=== PATIENT | male | born 1940 | race Caucasian/White ===

== ENCOUNTER 2021-03-23 08:37 | Outpatient (RCR) | payer MEDICARE, SELFPAY ==
--- NOTE | 2021-03-23 08:31 | PHAR ---
Doctor Watkins added as ordering physician for Casirivimab/Imdevimab because Anastacio Wong is not in our system.
[2021-03-23] MEDS: diphenhydrAMINE HCl CAP 25 MG CAPSULE PO (10:24)
[2021-03-23] MEDS: ACETAMINOPHEN 325 MG TABLET 650 MG PO (10:24)
[2021-03-23] MEDS: FAMOTIDINE 20 MG TABLET PO (10:24)
[2021-03-23 10:33] VITALS: BP 127/57; PULSE 78; RESP 18; TEMP 38.3; O2SAT 90
--- NOTE | 2021-03-23 10:37 | PC.NURSE ---
Patient unable to remember home medications during his visit.
--- NOTE | 2021-03-23 10:40 | PC.NURSE ---
Patient states he has not had COVID vaccines.
[2021-03-23 12:00] VITALS: BP 111/55; PULSE 60; RESP 20; TEMP 36.9; O2SAT 93
--- NOTE | 2021-03-26 09:24 | PC.NURSE ---
Attempted to call patient for follow-up regarding COVID antibody infusion but patient did not answer. Left voicemail with callback number.
== END 2021-03-23 16:30 | disposition home or self-care (01) ==
LOC: AMCINF 08:37
PROVIDERS: Visit Provider Internal Medicine Hematology & Oncology
DX: Z23 Encounter for immunization (principal); U07.1 COVID-19; I25.10 Atherosclerotic heart disease of native coronary artery without angina pectoris; J44.9 Chronic obstructive pulmonary disease, unspecified
CPT/HCPCS: A9270; J7050; M0243

== ENCOUNTER 2021-05-04 13:21 | Outpatient (RCR) | payer MEDICARE, SELFPAY ==
--- NOTE | 2021-05-04 14:56 | OTOPEVAL ---
OCCUPATIONAL THERAPY INITIAL EVALUATION REPORT 05/04/21 Patient presents today for OT evaluation with dx of COPD with recent history of lengthy hospitalization for COVID PNA. Per patient and patient's son report, the patient is progressing with his functional endurance at home, noting that he has not needed to use home 02 for a few days and that his 02 saturations are staying about 90%. Today the patient and his son were educated on energy conservation techniques, diaphragmatic breathing, and pursed lip breathing techniques. They demonstrate and verbalize excellent understanding of all materials. No follow up visits were scheduled at this time, but OT will plan to leave his care plan open x4 weeks to allow him to return for a follow up if he has questions or needs clarifications on any of the materials discussed today. Will discharge the patient by/before 06/01/21 if he does not indicate the need for OT follow up. Thank you for referring Shania Virk to [facility] The patient is scheduled to be seen for therapy? 0-1x/week for 4 weeks. Please review, sign, date and return this plan of care ERLIN. I agree with and certify that the following plan of care is medically necessary. Referring Physician Date Referring Provider: Milton Ramirez MD *OT Outpatient Evaluation Start: 05/04/21 13:38 Therapy Assessment Status Assessment Status Assessment Status Evaluation Outpatient Past Medical History Respiratory History Hx Chronic Obstructive Pulmonary Disease Yes (COPD) Hx COVID-19 Yes: 03/2021 Evaluation Information Problem Diagnosis J84.9 Subjective Information Cliff Jauregui , presents today Query Text:As Reported By Patient/ with his son for OT evaluation Family with dx of COPD. Patient was COVID + in Mar 2021 and became hypoxic at home. He went to the ED where his 02 sats were measuring in the upper 70s. He was admitted to the hospital for 15 days. Upon discharge it was recommended that he had home 02. He states that he has not needed to wear his home 02 for a few days. He wears a pulse oximeter around his neck and checks his 02 frequently. States he does not get short of breath with light ADL tasks , such as bathing and dressing . States that when he does over exert himself he tries to rest and catch his breath. Prior Level of Function Activity Level (Last 3 Months) Hand Dominance Right Activity of Daily Living Ability Independent Indoor/Home Mobility Independent Pain Assessment Timing of Pain Assessment Timing
--- NOTE | 2021-05-25 11:17 | PCOTNOTE ---
OCCUPATIONAL THERAPY DISCHARGE NOTIFICATION 05/25/21 Patient:Shania Virk Date of :1940 Patient has not returned for any further treatments since his initial evaluation on 05/04/2021, therefore he will be discharged at this time. Please refer to evaluation report on that date for comprehensive summary of evaluation findings. On the patient?s initial visit he was educated on energy conservation, diaphragmatic breathing, and pursed lip breathing techniques. Followed up with patient today via phone call and he states he has been improving and does not see the need for a follow up session with OT at this time. Discharging today with patient and his son independent with all materials. Thank you for referring this patient to [facility]. Please review, sign, date and return this discharge summary ERLIN. I have been updated about the patient's current status and I agree with discharge from the above service at this time. Referring Physician Date Referring Provider: Milton Ramirez
== END 2021-05-25 14:10 | disposition home or self-care (01) ==
LOC: ANHHIOT 13:21
DX: J84.9 Interstitial pulmonary disease, unspecified (principal)
CPT/HCPCS: 97165; 97530

== ENCOUNTER 2022-02-08 11:56 | Emergency (ER) | payer MEDICARE, SELFPAY ==
--- NOTE | ~2022-02-08 | CT_ITS ---
EXAMINATION: CT brain wo con DATE: 02/08/2022 13:12 INDICATION: Status post fall. Headache in the frontal region. TECHNIQUE: Computed tomography (CT) of the head was performed without intravenous contrast. The dose- length product was 605.33 mGy-cm. Automated exposure control and iterative reconstruction technique w ere employed. COMPARISON: None FINDINGS: Generalized atrophy. There are scattered moderate periventricular and subcortical white mat ter changes, most likely related to small vessel ischemic disease (microangiopathy). There is intracr anial atherosclerosis. There are chronic right lacunar infarctions. No ventriculomegaly or midline sh ift. Basilar cisterns are patent. There are air-fluid levels in the maxillary sinuses. Consider facia l fractures given the history of fall. IMPRESSION: 1. No acute intracranial abnormality. 2: Chronic right lacunar infarctions. 3: Air-fluid levels in the maxillary sinus which could be related to sinus disease or hemorrhage fro m facial fracture. 4: Chronic age-related findings. Reviewed, dictated and finalized at location A. IMPRESSION: 1. No acute intracranial abnormality. 2: Chronic right lacunar infarctions. 3: Air-fluid levels in the maxillary sinus which could be related to sinus dis ease or hemorrhage from facial fracture. 4: Chronic age-related findings.
--- NOTE | ~2022-02-08 | CT_ITS ---
EXAMINATION: 1. CT facial & cervical spine wo DATE: 02/08/2022 13:12 INDICATION: Frontal head pain and posterior neck pain post fall TECHNIQUE: 1. Computed tomography (CT) of the maxillofacial region and of the cervical spine were performed with out intravenous contrast. Sagittal and coronal reconstructions of both regions were obtained. Automat ed exposure control and iterative reconstruction technique were employed. The dose-length product was 432.61 mGy-cm. COMPARISON: None. FINDINGS: Maxillofacial CT: No maxillofacial fractures identified. Nasal septum is midline. Changes of bilateral intraocular lens replacement. mild mucosal thickening in the bilateral ethmoid and maxillary sinuses with posterior l ayering fluid in the bilateral maxillary sinuses. The fluid is significantly lower in attenuation arnulfo n would be expected for blood. Patient is edentulous. Temporomandibular joints are in normal alignmen t with mild osteoarthritis on the right and severe on the left. Small amount of debris/cerumen in the left external auditory canal. Bilateral middle ear cavities and mastoid air cells are clear. Athero sclerotic calcification is at the bilateral carotid siphons. Cervical spine CT: Alignment is normal. Schmorl's nodes superimposed over a T3 superior endplate compression fracture wi th 20% central vertebral body height loss. Many vertebral body heights are normal. No acute fracture. Moderate disc height loss with degenerative endplate changes and severe uncovertebral osteoarthritis at C4-C5 through C6-C7. Additional mild disc height loss at C2-C3, C3-C4 and C7-T1 with moderate dis c height loss at T1-T2. There is fusion across the bilateral facet and uncovertebral joints at C6-C7. Multilevel severe facet osteoarthritis at the right side of the mid to upper cervical spine and at t he left side of the visualized upper thoracic spine. Disc bulge at C5-C6 and posterior disc osteophyt e complexes at C4-C5 and minimally at C6-C7 result in mild central canal stenosis at these levels. Mo derate neural foraminal stenosis on the right at and C2-C3 and C3-C4 with mild neural foraminal steno sis at many of the remaining levels on both the left and right sides of the cervical spine. Prominent atherosclerotic calcifications at the bilateral carotid bulbs. Goiter with an approximately 3 cm nod ule in the right thyroid lobe. Cervical soft tissues is otherwise unremarkable. Mild emphysema at the visualized bilateral upper lobes. There is irregular peripheral septal line thickening at the bilate ral apices of lungs which could represent atelectasis/scarring, mild pulmonary edema or chronic inter stitial lung disease. IMPRESSION: 1. No acute maxillofacial or cervical spine fractures. 2. Dependently layering fluid of less than blood density in the bilateral maxillary sinuses. Correlat e clinically for acute sinusitis. 3. Moderate cervical spondylosis. 4. Mild emphysema. 5. Goiter with 3 cm right thyroid nodule. Consider thyroid ultrasound for risk stratification. Reviewed, dictated and finalized at location A. IMPRESSION: 1. No acute maxillofacial or cervical spine fractures. 2. Dependently layering fluid of less than blood density in the bilateral maxil oscar sinuses. Correlate clinically for acute sinusitis. 3. Moderate cervical spondylosis. 4. Mild emphysema. 5. Goiter with 3 cm right thyroid nodule. Consider thyroid ultrasound for risk stratification.
[2022-02-08 12:00] VITALS: BP 138/67; PULSE 70; RESP 18; TEMP 36.2; O2SAT 96
--- NOTE | 2022-02-08 15:24 | ED.FALL ---
HPI - Fall General Chief Complaint: Fall Stated Complaint: fall with head, eye, and neck pain - 3 weeks Time Seen by Provider: 02/08/22 12:39 Source: RN notes reviewed History of Present Illness HPI Narrative: Patient presents emergency department from home for head and neck pain. Patient states that he fell approximately 3 weeks ago he states he tripped over a curb and fell forward landing flat on his face and head hit his head states he did have an abrasion over the left forehead at that time with mild bleeding and since that time has had a frontal headache as well as pain in his left eye when he points to his left he points to just below his left eye states is aching in nature he also notes pain in the left side of his neck that is worse with turning his neck but does not hurt when looking straight. He denies any loss of consciousness he denies any chest pain shortness of breath abdominal pain numbness or tingling in the extremities or any other symptoms forward Related Data Allergies Allergy/AdvReac Type Severity Reaction Status Date / Time ANTILIPEMIC Allergy Unknown Unknown Uncoded 02/08/22 11:58 Review of Systems Review of Systems: Gen.: Denies fevers or chills Eyes: Reports pain just below the left eye ENT: Denies congestion Respiratory: Denies shortness of breath or cough CV: Denies chest pain or palpitations GI: Denies abdominal pain nausea, emesis or diarrhea Musculoskeletal: See HPI Neuro: Reports headache denies numbness or tingling Skin: Denies rash Except as documented, all other systems reviewed and negative [facility] Past Medical History Medical History (Updated 02/08/22 @ 15:30 by Amish Galloway DO) Hypercholesterolemia Social History Social History Smoking packs per day: 0.5 Smoking cigarettes per day: 10.0 Years smoked: 26 Smoking pack-years: 13.00 Smoking status: Former smoker Tobacco type: cigarettes Spiritual care concerns: No Exam Narrative: APPEARANCE: No acute distress, nontoxic, resting in bed EYES: EOMI, PERRL, no swelling in the upper or lower eyelids, no conjunctival erythema HEENT: Normocephalic, atraumatic, TMs clear bilaterally nares patent mucosa moist no erythema or collection posterior pharynx range of motion of jaw without pain no tenderness palpation over the left maxillary sinus and inferior orbit no overlying ecchymosis Neck: Supple no midline tenderness palpation temporal patient left perigee muscles see 4 through 7 pain with rotation of the head to the left no pain with rotation of the right RESPIRATORY: No respiratory distress Clear to auscultation bilaterally with no rhonchi wheezing or rales. CARDIOVASCULAR: Regular rate and rhythm without murmurs rubs or gallops. ABDOMINAL: Soft, nontender, nondistended, no rebound or guarding MUSCULOSKELETAl: Moves all extremities. No clubbing, cyanosis or edema. NEURO: Awake and alert x 3 Following commands, speech normal, no focal deficits SKIN:: Warm, dry. No rashes lesions or abrasions PSYCHIATRIC: Normal affect/mood, Course Course Emergency Course: Discussed with patient results of workup and diagnosis. Discussed need for follow-up with primary care, proper use of medication, and reasons to return to the emergency department. Patient understands and agrees to current treatment plan Vital Signs Vital signs: Vital Signs Temperature 97.2 F L 02/08/22 12:00 Pulse Rate 70 02/08/22 12:00 Respiratory Rate 18 02/08/22 12:00 Blood Pressure 138/67 02/08/22 12:00 Pulse Oximetry 96 02/08/22 12:00 Oxygen Delivery Room Air 02/08/22 12:00 Temperature 97.2 F L 02/08/22 12:00 Pulse Rate 70 02/08/22 12:00 Respiratory Rate 18 02/08/22 12:00 Blood Pressure 138/67 02/08/22 12:00 Pulse Oximetry 96 02/08/22 12:00 Oxygen Delivery Room Air 02/08/22 12:00 MDM - Fall MDM Narrative Medical decision making narrative: Patient fell 3 weeks ago pain left side of the neck CT the neck shows no acu
[2022-02-08 15:59] VITALS: BP 141/87; PULSE 72; RESP 16; O2SAT 100
== END 2022-02-08 17:30 | disposition home or self-care (01) ==
LOC: ANHED 16:14
PROVIDERS: Emergency Provider Emergency Medicine; PCP Internal Medicine
DX: S16.1XXA Strain of muscle, fascia and tendon at neck level, initial encounter (principal); J32.9 Chronic sinusitis, unspecified; E78.00 Pure hypercholesterolemia, unspecified; Z87.891 Personal history of nicotine dependence; M47.812 Spondylosis without myelopathy or radiculopathy, cervical region; J43.9 Emphysema, unspecified; E04.1 Nontoxic single thyroid nodule; W10.1XXA Fall (on)(from) sidewalk curb, initial encounter
CPT/HCPCS: 70450; 70486; 72125; 99284

== ENCOUNTER 2022-05-20 17:07 | Observation (INO) | payer MEDICARE, SELFPAY ==
[2022-05-20] VITALS (33 sets, daily range): BP systolic 88–139; BP diastolic 50–70; PULSE 48–79; RESP 14–27; TEMP 36.4–38; O2SAT 94–100; BMI 25.4
--- NOTE | ~2022-05-20 | CT_ITS ---
EXAMINATION: CT brain wo con DATE: 05/21/2022 09:55 INDICATION: Altered mental status. TECHNIQUE: Computed tomography (CT) of the head was performed without intravenous contrast. The mA wa s adjusted according to patient size. Iterative reconstruction technique was employed. The dose-lengt h product was 605.33 mGy-cm. COMPARISON: Head CT 02/08/2022 FINDINGS: There are scattered areas of low attenuation in the cerebral white matter. There is no intr acranial hemorrhage, acute infarction, or abnormal intracranial mass lesion. The ventricles are zayra l in size. There are likely changes of ocular lens replacement surgeries. There is mild mucosal thick ening in the paranasal sinuses. The mastoid air cells are normal. IMPRESSION: 1. Stable moderate nonspecific cerebral white matter disease, which likely represents chronic small v essel ischemic disease. Reviewed, dictated and finalized at location A. CTOR SURFACE TRANSPORTATION IMPRESSION: 1. Stable moderate nonspecific cerebral white matter disease, which likely repr esents chronic small vessel ischemic disease.
--- NOTE | ~2022-05-20 | XR_ITS ---
EXAMINATION: XR chest 2V Exam Date/Time: 05/20/2022 17:30 GRANULATOR OPERATOR HISTORY: chest pain Comparison: 11/01/2015. RESULT: Lines, tubes, and devices: None. Lungs and pleura: No focal consolidation or pneumothorax. Chronic peripheral and basilar interstitia l change. Cardiomediastinal silhouette: Stable aortic calcification and ectasia, cardiomegaly. Other: No acute osseous or upper abdominal finding. IMPRESSION: No acute cardiopulmonary process. Chronic interstitial lung disease Reviewed, dictated and finalized at location K. ULATOR OPERATOR
--- NOTE | 2022-05-20 17:22 | ECG_ITS ---
Measurements Intervals [place] Rate: 77 P: 72 VT: 173 QRS: -20 QRSD: 93 T: 25 QT: 373 QTc: 424 Interpretive Statements SINUS RHYTHM DELAYED PRECORDIAL R/S TRANSITION VOLTAGE CRITERIA FOR LVH MINIMAL Q WAVES- HIGH LATERAL LEADS BASELINE ARTIFACT- I, III, AVL, V4 BORDERLINE ECG NO PREVIOUS ECG AVAILABLE FOR COMPARISON Electronically Signed On 05-20-2022 19:46:10 CART PUSHER by Nicolás Sanchez D.O.
[2022-05-20 17:40] LABS: Hematocrit 39.1 % (42.0-52.0); Mean Corpuscular HGB Conc 33.2 g/dl (32-36); Mean Corpuscular Hemoglobin 31.4 pg (26-34); Mean Corpuscular Volume 94.4 fl (80-100); Mean Platelet Volume 9.5 fl (7.4-10.4); Platelet Count Result 143 k/mm3 (150-375); Red Blood Count 4.14 M/mm3 (4.6-6.20); Red Cell Distribution Width 13.7 % (11.5-14.5); White Blood Count 15.5 K/mm3 (4.5-10.0)
[2022-05-20 17:53] LABS: INR 1.1; Partial Thromboplastin Time 33.5 SECONDS (22.3-36.8); Prothrombin Time 13.4 Seconds (11.1-14.7)
[2022-05-20 17:55] LABS: Alanine Aminotransferase 17 U/L (6-50); Albumin Level 4.2 g/dL (3.5-5.1); Alkaline Phosphatase 59 U/L (38-126); Anion Gap 10 mmol/L (8-16); Aspartate Amino Transferase 23 U/L (17-59); Bilirubin,Total 1.3 mg/dL (0.2-1.3); Blood Urea Nitrogen 23 mg/dL (9-20); Calcium 8.9 mg/dL (8.4-10.2); Carbon Dioxide 24 mmol/L (22-30); Chloride 100 mmol/L (98-107); Estimated CRCL calculation 66 ml/min; Estimated Glomerular Filt Rate > 60; Glucose 137 mg/dL (65-110); Lipase 36 U/L (23-300); Potassium 3.6 mmol/L (3.4-5.0); Sodium 134 mmol/L (137-145)
[2022-05-20 18:08] LABS: Troponin I 0.323 ng/mL (0.000-0.034)
[2022-05-20 18:12] LABS: Band Neutrophils Percent 6 % (0-6); Lymphocytes Absolute Manual 0.62 K/mm3 (1.1-4.5); Monocytes Absolute Manual 0.46 K/mm3 (0.1-0.90); Monocytes Percent Manual 3 % (3-9); Neutrophils Absolute Manual 14.41 K/mm3 (1.3-6.7); Neutrophils Percent Manual 87 % (46-73); Schistocytes None Seen (NORMAL); Total Cells Counted 100
[2022-05-20] MEDS: ASPIRIN 81 MG CHEWABLE TABLET 324 MG PO (19:21)
--- NOTE | 2022-05-20 19:58 | ED.GENADULT ---
HPI - General Adult General Chief complaint: Shortness of Breath/Dyspnea Stated complaint: LETHARGIC, SOB, BODY ACHES Time Seen by Provider: 05/20/22 18:54 History of Present Illness HPI narrative: This is an 82-year-old male presented ED with 2 days of flu-like symptoms. Symptoms have included fatigue, body aches, chills and decreased oral intake. Patient is not vaccinated against the flu. He is vaccinated scope. He has had multiple trips out of state for different sores been around a large amount of people. Denies sick contacts at home. He denies nausea vomiting. He has had some diarrhea. He does have chronic right-sided chest pain that he describes as an achy, nonradiating 5/10 in intensity that comes and goes. It has been going on for months. Has no exacerbating or alleviating factors. Related Data Allergies Allergy/AdvReac Type Severity Reaction Status Date / Time ANTILIPEMIC Allergy Unknown Unknown Uncoded 02/08/22 11:58 Review of Systems Review of Systems: CONSTITUTIONAL: Denies night sweats. EYES: No eye pain ENT: Denies rhinorrhea CARDIOVASCULAR: Denies palpitations RESPIRATORY: Denies hemoptysis GASTROINTESTINAL: Denies hematemesis GENITOURINARY: Denies hematuria. SKIN: Denies rash MUSCULOSKELETAL: Denies myalgia. NEUROLOGIC: Denies weakness. PSYCHIATRIC: Denies delusions PMFSH Past Medical History Medical History Hypercholesterolemia Social History Social History Smoking packs per day: 0.5 Smoking cigarettes per day: 10.0 Years smoked: 26 Smoking pack-years: 13.00 Smoking status: Former smoker Tobacco type: cigarettes Spiritual care concerns: No Exam Narrative: APPEARANCE Patient is an elderly gentleman who looks uncomfortable Head: atraumatic. EYES: EOMI, NOSE: Atraumatic NECK: Trachea midline RESPIRATORY: No increased rate of breathing, lung sounds are clear bilaterally CARDIOVASCULAR: RRR, no peripheral edema ABDOMINAL: Non-distended soft, no guarding or rebound MUSCULOSKELETAl: No obvious deformities NEURO: Alert. Moving 4/4 extremities SKIN:: Warm, dry. Normal color PSYCHIATRIC: Normal affect Course Vital Signs Vital signs: Vital Signs Temperature 100.4 F H 05/20/22 17:19 Pulse Rate 79 05/20/22 17:19 Respiratory Rate 20 05/20/22 17:19 Blood Pressure 107/50 L 05/20/22 17:19 Pulse Oximetry 95 05/20/22 17:19 Oxygen Delivery Room Air 05/20/22 17:19 Temperature 100.4 F H 05/20/22 17:19 Pulse Rate 68 05/20/22 19:01 Respiratory Rate 18 05/20/22 19:01 Blood Pressure 122/62 05/20/22 19:01 Pulse Oximetry 99 05/20/22 19:01 Oxygen Delivery Room Air 05/20/22 18:40 Medical Decision Making MDM Narrative Medical decision making narrative: this is an 82-year-old gentleman presenting with 2 days of flu-like symptoms. Basic lab work, EKG and chest x-ray have been ordered. Flu swab and COVID been ordered. He has been given Motrin Tylenol L of fluids for symptom control. EKG interpretation: Rhythm [sinus], Rate 77, [place] -[normal], OR -[normal], QRS [narrow], QTC [normal], T waves -[negative for concerning inversions], ST Segments - [Negative for concerning elevations] Final interpretations: normal sinus rhythm Flu and COVID were negative. White blood cell count is elevated at 15 likely due to viral infection. CMP was within normal limits. Patient's troponin is elevated at 0.32 and trended 0.27. Patient has no ischemic EKG changes. he has been given aspirin. Chest x-ray showed no acute cardiopulmonary process. Patient had an isolated blood pressure of 80/54. The cuff was adjusted and retaken and it was 105/65. Patient will be given another L of fluid Due to the patient's advanced age and elevated troponin he will be admitted to the hospital for observation. Vital Signs Vital Signs: Vital Signs
[2022-05-20] MEDS: SODIUM CHLORIDE 0.9% IV 1,000 ML 150 ML IV CONT (20:03)
[2022-05-20] MEDS: KETOROLAC 15 MG/ML VIAL (*BKC) IV PUSH (20:04)
[2022-05-20 20:42] LABS: Influenza A QL RT-PCR Negative (Negative); Influenza B QL RT-PCR Negative (Negative); SARS-CoV-2 RNA PCR Negative
[2022-05-20 21:30] LABS: Troponin I 0.271 ng/mL (0.000-0.034)
[2022-05-20 22:30] LABS: Creatine Kinase 54 U/L (55-170)
[2022-05-20] MEDS: SODIUM CHLORIDE 0.9% IV 1,000 ML 150 ML (22:55)
--- NOTE | 2022-05-20 23:13 | PM.IMHP ---
H&P: HPI History of Present Illness Date/Time: 05/20/22 23:13 Chief Complaint: generalized weakness Narrative: This is an 82-year-old male with past medical history significant for immunosuppressive therapy, dyslipidemia. Patient was brought to the emergency room by his son due to concerns for generalized weakness, poor oral intake, confusion patient cannot really give me much history he is tangential and circumstantial. Preliminary workup was significant for influenza a and B tested negative COVID 19 was negative a chest x-ray showed interstitial lung disease a CBC showed WBC 90712 troponins x2 0.32, 0.26 respectively a CPK was 54. Patient has been placed in observation for further management evaluation and treatment. Review of Systems Review of Systems: ROS unobtainable: Yes other ( Tangential, circumstantial, dementia) PMFSH Past Medical History Medical History Hypercholesterolemia Family History Family History (Updated 05/21/22 @ 00:40 by Darlene Mcdaniels RN) Other Unknown family medical history Social History Social History Smoking packs per day: 0.5 Smoking cigarettes per day: 10.0 Years smoked: 26 Smoking pack-years: 13.00 Smoking status: Former smoker Tobacco type: cigarettes Alcohol intake: never Substance use: never Has the Lack of Transportation Kept You From Medical Appointments or From Getting Medications?: No Within the Past 12 Months, Were You Worried Whether Your Food Would Run Out Before You Got Money to Buy More?: Never True What is Your Housing Situation Today?: I Have Housing Are You Worried That in the Next 2 Months, You May Not Have Your Own Housing to Live In?: No Do You Have Trouble Paying Your Heating Or Electricity Bill?: No Do You Have Trouble Paying For Medicines?: No Are You Currently Unemployed and Looking for Work?: No Highest Level of Education Completed: High School Diploma/GED Do You Have Trouble With Childcare or the Care of a Family Member?: No Spiritual care concerns: No Meds Home Medications and Allergies Home Medications Medication Instructions Recorded Confirmed Type mycophenolate mofetil 500 mg tablet 500 mg PO BID 05/21/22 05/21/22 History rosuvastatin 5 mg tablet 5 mg PO DAILY 05/21/22 05/21/22 History Allergies Allergy/AdvReac Type Severity Reaction Status Date / Time ANTILIPEMIC Allergy Unknown Unknown Uncoded 02/08/22 11:58 Vital Signs Vital Signs - 24 hr 05/20/22 17:19 05/20/22 18:39 05/20/22 18:40 Temperature 100.4 F H Pulse Rate 79 67 Respiratory Rate 20 Blood Pressure 107/50 L Pulse Oximetry 95 99 Oxygen Delivery Room Air Room Air 05/20/22 18:40 05/20/22 19:01 05/20/22 19:51 Temperature Pulse Rate 68 67 Respiratory Rate 18 Blood Pressure 122/62 Pulse Oximetry 99 99 97 Oxygen Delivery Room Air 05/20/22 20:00 05/20/22 20:01 05/20/22 20:15 Temperature Pulse Rate 65 63 60 Respiratory Rate 18 17 18 Blood Pressure 102/57 L Pulse Oximetry 99 99 97 Oxygen Delivery 05/20/22 20:16 05/20/22 20:30 05/20/22 20:32 Temperature Pulse Rate 64 65 68 Respiratory Rate 19 22 H 19 Blood Pressure 95/51 L 108/60 Pulse Oximetry 96 98 96 Oxygen Delivery 05/20/22 20:45 05/20/22 20:46 05/20/22 21:02 Temperature Pulse Rate 65 65 69 Respiratory Rate 21 H 16 22 H Blood Pressure 101/50 L Pulse Oximetry 97 98 96 Oxygen Delivery 05/20/22 21:15 05/20/22 21:16 05/20/22 21:30 Temperature Pulse Rate 65 67 61 Respiratory Rate 14 23 H 27 H Blood Pressure 93/54 L Pulse Oximetry 97 97 97 Oxygen Delivery 05/20/22 21:31 05/20/22 21:58 05/20/22 22:00 Temperature Pulse Rate 62 54 L 58 L Respiratory Rate 18 18 17 Blood Pressure 91/52 L Pulse Oximetry 97 94 99 Oxygen Delivery 05/20/22 22:01 05/20/22 22:15 05/20/22 22:16 Temp
--- NOTE | 2022-05-20 23:37 | ADMGEN ---
This patient, Shania Virk, was admitted to IMU Room 200-01. Patient/family oriented to hospital policies and general routines including ID bracelet, bed and alarms, visiting hours, pain management, procedures, bathroom and other care routines, personal items, smoking policy, room service/diet, and visiting hours. Information on how to activate the Rapid Response Team has been discussed. Patient/Family are encouraged to report perceived risks to care and to ask questions if they do not understand what they are told or what they should do.
[2022-05-21 02:00] VITALS: PULSE 52
[2022-05-21 04:00] VITALS: BP 118/63; PULSE 58; PULSE 66; RESP 20; TEMP 36.6; O2SAT 98
[2022-05-21 06:00] VITALS: PULSE 55
[2022-05-21 08:00] VITALS: PULSE 61
[2022-05-21 08:08] VITALS: BP 142/65; PULSE 63; RESP 20; TEMP 37; O2SAT 100
[2022-05-21] MEDS: mycophenolate mofetiL 250 MG CAPSULE 500 MG PO (09:08)
[2022-05-21 09:46] LABS: Appearance Urine Clear (Clear); Bilirubin Urine Negative (Negative); Blood Urine Trace-intact (Negative); Color Urine Yellow (Yellow); Glucose Urine UA Negative (Negative); Ketones Urine Negative (Negative); Leukocyte Esterase Ur Negative LEU/UL (NEGATIVE); Nitrate Urine Negative (Negative); Protein Urine Negative (Negative); Urobilinogen Urine 0.2 mg/dL (<2.0)
[2022-05-21 10:00] VITALS: PULSE 64
[2022-05-21 10:03] LABS: Mucus Urine Rare /lpf; RBC Urine 0-2 /hpf (0-2)
[2022-05-21 10:07] LABS: Add Urine Microscopic? YES
--- NOTE | 2022-05-21 11:02 | PM.DS ---
DS: Admitting Diagnosis Discharge Date 05/21/22 Admitting Diagnosis altered mental status DS: Summary Hospital Course Hospital Course: This is an 82-year-old male with past medical history significant for immunosuppressive therapy, dyslipidemia.? Patient was brought to the emergency room by his son due to concerns for generalized weakness, poor oral intake, confusion.? Preliminary workup : influenza a and B tested negative, COVID 19 was negative. a chest x-ray showed interstitial lung disease. a CBC showed WBC 74633 troponins x2 0.32, 0.26 respectively a CPK was 54. CT head was negative. UA was unremarkable. This morning patient was back to his normal mental baseline status and had no symptoms. Patient is being discharged home Time Spent with Patient Time attestation: Total time spent providing and/or coordinating discharge services: Exam Narrative: patient is laying in a stretcher Const: General: comfortable, no acute distress, well developed, alert, awake and average body habitus Nutritional Appearance: average body habitus Orientation/consciousness: oriented to person and oriented to place Limitations: other limitations ( dementia) HENMT: Head: normal to inspection, normocephalic and atraumatic Ears: hearing grossly normal bilaterally Face/Nose/Sinus: normal facial exam Face and sinus: normal facial exam Eyes: General: appearance normal, both eyes and all related structures Pupils: Equal, round and reactive pupils present EOM: EOMs intact bilaterally Neck: Neck: full ROM, no lymphadenopathy and no JVD Thyroid: thyroid normal Lymphatic: no lymphadenopathy noted Resp: Effort & Inspection: normal respiratory effort and able to speak in complete sentences Auscultation: clear to auscultation bilaterally Cardio: Jugular venous distension: no JVD Rate: regular rate Rhythm: regular rhythm Heart sounds: S1 normal heart sound present and S2 normal heart sound present GI: Inspection: normal to inspection GI Palp: Yes Soft to palpation and Yes No hepatosplenomegaly present : General: Yes deferred Skin: Rashes: no rashes Wounds: no wounds Neuro: General: oriented to person, oriented to place and CN's II-XI intact bilaterally Cranial nerves: Yes CN's II-XII intact bilaterally and Yes Equal, round and reactive pupils present Cognition (Neuro): abnormal cognition ( dementia) Speech: normal speech Gait exam (Neuro): Normal gait present Motor exam (neuro): 5/5 motor strength present throughout Extrem: General: edema ( 2+) bilateral DS: Data Data Completed and Pending Labs on day of discharge: Labs from last 24 hours 05/21/22 05/20/22 05/20/22 09:17 23:44 20:39 WBC RBC Hgb Hct MCV MCH MCHC RDW Plt Count MPV Immature Gran % (Auto) Neut % (Auto) Lymph % (Auto) Real % (Auto) Eos % (Auto) Baso % (Auto) Lymph # (Auto) Real # (Auto) Eos # (Auto) Baso # (Auto) Abs Immat Gran (auto) Absolute Neuts (auto) Absolute Nucleated RBC Total Counted Neutrophils % (Manual) Band Neutrophils % Lymphocytes % (Manual) Monocytes % (Manual) Nucleated RBC % Abs Neuts (Manual) Abs Lymphs (Manual) Abs Monocytes (Manual) Platelet Estimate Schistocytes PT INR APTT Sodium Potassium Chloride Carbon Dioxide Anion Gap BUN Creatinine Estim Creat Clear Calc Estimated GFR Glucose Calcium Total Bilirubin AST ALT Alkaline Phosphatase Total Creatine Kinase 54 L Troponin I 0.260 H* Total Protein Albumin Lipase Urine Color Yellow Urine Appearance Clear Urine pH 6.0 Ur Specific [place] 1.010 Urine Protein Negative Urine Glucose (UA) Negative Urine Ketones Negative Ur Blood (Man) Trace-intact Urine Nitrate Negative Urine Bilirubin Negative Urine Urobilinogen 0.2 Ur Leukocyte Esterase Negative Urine RBC
== END 2022-05-21 10:50 | disposition home or self-care (01) ==
LOC: ANHED 22:34 → ANHIMU 23:25
PROVIDERS: Family Medicine; Admitting Provider Internal Medicine; Emergency Provider Emergency Medicine; PCP Internal Medicine; Visit Provider Hospitalist
DX: B34.9 Viral infection, unspecified (principal); R77.8 Other specified abnormalities of plasma proteins; D72.829 Elevated white blood cell count, unspecified; C73 Malignant neoplasm of thyroid gland; R63.0 Anorexia; Z68.25 Body mass index [BMI] 25.0-25.9, adult; R90.82 White matter disease, unspecified; R41.0 Disorientation, unspecified; J84.9 Interstitial pulmonary disease, unspecified; E78.5 Hyperlipidemia, unspecified; Z28.39 Other underimmunization status; Z28.89 Immunization not carried out for other reason; R19.7 Diarrhea, unspecified; Z87.891 Personal history of nicotine dependence; Z20.822 Contact with and (suspected) exposure to COVID-19; Z79.899 Other long term (current) drug therapy
CPT/HCPCS: 36415; 70450; 71046; 80053; 81001; 82550; 83690; 84484; 85025; 85610; 85730; 87502; 93005; 96361; 96365; 96375; 99285; A9270; G0378; J0131; J1885; J7030; J7517; U0003; U0005

== ENCOUNTER 2022-08-21 04:55 | Observation (INO) | payer MEDICARE, SELFPAY ==
--- NOTE | ~2022-08-21 | XR_ITS ---
Portable chest x-ray Comparison: 05/20/2022 Clinical History: Dyspnea, fever Findings: Chronic interstitial disease with basilar and peripheral distribution is similar to prior exam. No acute consolidation is evident. No pleural effusion or pneumothorax. Cardiomediastinal silh ouette is stable. Bones and soft tissues are unremarkable. Impression: Extensive chronic interstitial disease is similar to prior exam. Reviewed, dictated and finalized at [facility]. ESSOR OF ART HISTORY Impression: Extensive chronic interstitial disease is similar to prior exam.
--- NOTE | ~2022-08-21 | CT_ITS ---
Non-contrast Head CT History: Altered mental status COMPARISON: 05/21/2022 Technique: Axial non-contrast imaging of the brain was performed. Dose reduction technique was used on this scan by utilizing automated exposure control and iterative reconstruction technique. The dose -length product (DLP) was 681.00 mGy-cm. Findings: There is no evidence of intracranial hemorrhage, mass lesion, or acute infarct. Small excel expert olivia lacunar infarcts noted in the right basal ganglia. The ventricles and subarachnoid spaces are no rmal in size. The calvarium appears normal. The visualized paranasal sinuses and mastoid air cells are clear. Impression: No acute abnormality seen. Small chronic lacunar infarcts in the right basal ganglia. Reviewed, dictated and finalized at [facility]. ER TESTER Impression: No acute abnormality seen. Small chronic lacunar infarcts in the right basal ganglia.
[2022-08-21 04:59] VITALS: BP 143/70; PULSE 70; RESP 22; TEMP 38.3; O2SAT 95
[2022-08-21 05:07] VITALS: BP 159/79; PULSE 79; PULSE 82; RESP 26; TEMP 38.1; O2SAT 99
--- NOTE | 2022-08-21 05:08 | ECG_ITS ---
Measurements Intervals [place] Rate: 80 P: 61 WY: 177 QRS: -32 QRSD: 109 T: 43 QT: 364 QTc: 420 Interpretive Statements SINUS RHYTHM BASELINE ARTIFACT LEFT AXIS DEVIATION BORDERLINE ECG COMPARED TO ECG 05/20/2022 17:26:07 LEFT-AXIS DEVIATION NOW PRESENT Electronically Signed On 08-21-2022 15:10:47 [employer] SCHOOL TEACHER by Gelacio Wilkes M.D.
--- NOTE | 2022-08-21 05:08 | ED.GENADULT ---
HPI - General Adult General Chief complaint: Weakness Stated complaint: weakness Time Seen by Provider: 08/21/22 04:58 History of Present Illness HPI narrative: This is an 82-year-old gentleman presenting to ED with chief complaint of generalized weakness. Per the patient and his son Ferny he has been having fever, chills generalized weakness, cough and congestion for last 2 days. He has been eating normally. Denies nausea vomiting or diarrhea. Denies chest pain, abdominal pain or urinary symptoms. The son said that he brought him in because the patient got up from his bed and started peeing in the hallway. Patient has been intermittently confused over the last 2 days. Related Data Home Medications Medication Instructions Recorded Confirmed mycophenolate mofetil 500 mg tablet 500 mg PO BID 05/21/22 05/21/22 rosuvastatin 5 mg tablet 5 mg PO DAILY 05/21/22 05/21/22 Allergies Allergy/AdvReac Type Severity Reaction Status Date / Time ANTILIPEMIC Allergy Unknown Unknown Uncoded 02/08/22 11:58 [facility] Past Medical History Medical History Hypercholesterolemia Family History Family History Other Unknown family medical history Social History Social History Smoking packs per day: 0.5 Smoking cigarettes per day: 10.0 Years smoked: 26 Smoking pack-years: 13.00 Smoking status: Former smoker Tobacco type: cigarettes Alcohol intake: never Substance use: never Lack of Transportation: No Lack of Food: Never True Current Housing: I Have Housing Concerned About Future Housing: No Difficulty Paying Gas/Electric Bills: No Difficulty Paying for Meds: No Currently Unemployed: No Education: High School Diploma/GED Difficulty w/ Childcare or Family Care: No Spiritual care concerns: No Exam Narrative: APPEARANCE: Patient appears uncomfortable, he has rigors, warm to touch Head: atraumatic. EYES: EOMI, NOSE: Atraumatic NECK: Trachea midline, supple RESPIRATORY: clear to auscultation in all maynard. No increased work breathing. CARDIOVASCULAR: RRR, No peripheral edema ABDOMINAL: Non-distended, soft tender no guarding or rebound MUSCULOSKELETAl: No obvious deformities NEURO: Alert. Moving 4/4 extremities Genital:, no overlying skin changes or crepitus in the perineum or scrotum SKIN:: Warm, dry. Normal color PSYCHIATRIC: Normal affect Course Vital Signs Vital signs: Vital Signs Temperature 101.0 F H 08/21/22 04:59 Pulse Rate 70 08/21/22 04:59 Respiratory Rate 22 H 08/21/22 04:59 Blood Pressure 143/70 H 08/21/22 04:59 Pulse Oximetry 95 08/21/22 04:59 Oxygen Delivery Room Air 08/21/22 04:59 Temperature 100.6 F H 08/21/22 05:07 Pulse Rate 79 08/21/22 05:07 Respiratory Rate 26 H 08/21/22 05:07 Blood Pressure 159/79 H 08/21/22 05:07 Pulse Oximetry 99 08/21/22 05:07 Oxygen Delivery Room Air 08/21/22 05:07 Medical Decision Making MDM Narrative Medical decision making narrative: -Presentation: 82-year-old male presenting with 2 days of generalized weakness and fever. Additionally the patient's son is describing delirium/AMS. Full sepsis workup will be obtained including blood cultures. Patient given 2 L of fluid, Motrin Tylenol. -DDX includes but is not limited to: Viral syndrome, pneumonia, UTI, sepsis -Co-morbidities complicating care: advanced age, immunosuppression -Social determinants of health: patient lives at home with his son who provides majority of his care. -External Chart Review: Previous hospital records reviewed -Hx from independent Sources: malia Isaacs [phone] -Discussion of Management/Consultants: Dr. Kumari -hospitalist -Independent interpretation of studies: Independent EKG interpretation: Rhythm [sinus], Rate [80], [place] -[leftwa
[2022-08-21 05:12] LABS: Glucose Point of Care 108 mg/dl (65-105)
[2022-08-21 05:27] LABS: Basophils Percent Auto 0.3 % (0.2-1.2); Eosinophils Percent Auto 0.2 % (0-4.4); Hematocrit 40.6 % (42.0-52.0); Hemoglobin 13.3 g/dL (14.0-18.0); Immature Granulocyte Absolute 0.06 K/mm3 (0.00-0.031); Immature Granulocyte Percent A 0.6 % (0-0.5); Lymphocytes Absolute Auto 0.93 K/mm3 (0.9-3.2); Lymphocytes Percent Auto 8.5 % (18.3-44.2); Mean Corpuscular HGB Conc 32.8 g/dl (32-36); Mean Corpuscular Hemoglobin 31.6 pg (26-34); Mean Corpuscular Volume 96.4 fl (80-100); Mean Platelet Volume 9.8 fl (7.4-10.4); Monocytes Absolute Auto 0.7 K/mm3 (0.1-0.6); Monocytes Percent Auto 6.7 % (2.6-8.5); Neutrophils Absolute Auto 9.1 K/mm3 (1.3-6.7); Neutrophils Percent Auto 83.7 % (45.5-73.1); Platelet Count Result 139 k/mm3 (150-375); Red Blood Count 4.21 M/mm3 (4.6-6.20); Red Cell Distribution Width 13.7 % (11.5-14.5); White Blood Count 10.9 K/mm3 (4.5-10.0)
[2022-08-21 05:37] LABS: INR 1.1; Prothrombin Time 13.6 Seconds (11.1-14.7)
[2022-08-21 05:38] LABS: Partial Thromboplastin Time 33.3 SECONDS (22.3-36.8)
[2022-08-21 05:39] LABS: Alanine Aminotransferase 16 U/L (6-50); Alkaline Phosphatase 70 U/L (38-126); Anion Gap 6 mmol/L (8-16); Aspartate Amino Transferase 23 U/L (17-59); Bilirubin,Total 1.5 mg/dL (0.2-1.3); Blood Urea Nitrogen 21 mg/dL (9-20); Calcium 8.5 mg/dL (8.4-10.2); Carbon Dioxide 30 mmol/L (22-30); Chloride 100 mmol/L (98-107); Estimated CRCL calculation 62 ml/min; Estimated Glomerular Filt Rate > 60; Glucose 122 mg/dL (65-110); Lactic Acid Reflex 1.3 mmol/L (0.7-2.0); Lipase 62 U/L (23-300); Magnesium 1.8 mg/dL (1.6-2.3); Sodium 136 mmol/L (137-145)
[2022-08-21 05:48] LABS: Troponin I < 0.012 ng/mL (0.000-0.034)
[2022-08-21] MEDS: ACETAMINOPHEN 500 MG TABLET 1000 MG PO (05:50)
[2022-08-21 05:53] LABS: NT Pro B Type Natriuretic Pept 436 pg/mL (19.9-100)
[2022-08-21 06:02] LABS: Influenza A QL RT-PCR Negative (Negative); Influenza B QL RT-PCR Negative (Negative); RSV RNA, RT-PCR Negative (Negative); SARS-CoV-2 RNA PCR Negative
[2022-08-21] MEDS: IBUPROFEN 400 MG TABLET 800 MG PO (06:04)
[2022-08-21] MEDS: SODIUM CHLORIDE 0.9% IV 2,000 ML 999 ML IV CONT (06:06)
[2022-08-21 06:11] LABS: NT Pro B Type Natriuretic Pept 466 pg/mL (19.9-100)
[2022-08-21 06:24] LABS: Appearance Urine Clear (Clear); Bilirubin Urine Negative (Negative); Blood Urine Trace-intact (Negative); Color Urine Yellow (Yellow); Glucose Urine UA Negative (Negative); Ketones Urine Negative (Negative); Leukocyte Esterase Ur Negative LEU/UL (Negative); Nitrate Urine Negative (Negative); Protein Urine Trace mg/dL (Negative)
[2022-08-21 06:27] LABS: Bacteria Urine Trace /hpf; Mucus Urine Rare /lpf; RBC Urine 21-50 /hpf (0-2)
[2022-08-21 06:30] LABS: Add Urine Microscopic? YES
--- NOTE | 2022-08-21 06:48 | PC.NURSE ---
Floor will not take report at this time.
[2022-08-21 06:52] VITALS: BP 144/67; PULSE 72; RESP 21; O2SAT 99
--- NOTE | 2022-08-21 07:02 | PC.NURSE ---
Floor states someone will call back after huddle.
--- NOTE | 2022-08-21 07:07 | PC.NURSE ---
Nurse report given to Chantel GILMORE
--- NOTE | 2022-08-21 07:46 | ADMGEN ---
This patient, Shania Virk, was admitted to 3 [facility] Surg Room 316-01. Patient/family oriented to hospital policies and general routines including ID bracelet, bed and alarms, visiting hours, pain management, procedures, bathroom and other care routines, personal items, smoking policy, room service/diet, and visiting hours. Information on how to activate the Rapid Response Team has been discussed. Patient/Family are encouraged to report perceived risks to care and to ask questions if they do not understand what they are told or what they should do.
[2022-08-21 10:03] VITALS: TEMP 38.2
[2022-08-21 10:32] VITALS: O2SAT 94
[2022-08-21] MEDS: ACETAMINOPHEN 325 MG TABLET 650 MG PO (11:49)
[2022-08-21 14:49] VITALS: BP 110/58; PULSE 62; RESP 16; TEMP 35.7; O2SAT 97
--- NOTE | 2022-08-21 17:23 | PM.SD2 ---
Same Day Admit/Disch: HPI History of Present Illness Chief complaint: viral syndrome Narrative: Shania Virk is a 82 year old male with a PMH of dyslipidemia, immunosuppressive therapy is presenting with altered mental status, fever and generalized weakness. The patient's son found him standing in the hallway urinating in the middle of the night. The patient denied any NVD, CP, SOB, dysuria, URI symptoms. Good po intake. No sick contacts, recent travel. Patient was here in May for similar complaints, no significant etiology found and he was d/c in stable condition. In the ER, labs, CXR and UA were all WNL and no significant etiology was found. Fever resolved with tylenol. He was given IVF and felt much better. [facility] Past Medical History Medical History Hypercholesterolemia Family History Family History Mother CHF (congestive heart failure) Father CHF (congestive heart failure) Other Unknown family medical history Social History Social History Smoking packs per day: 0.5 Smoking cigarettes per day: 10.0 Years smoked: 26 Smoking pack-years: 13.00 Smoking status: Former smoker Tobacco type: cigarettes Alcohol intake: never Substance use: never Substance use type: does not use Lack of Transportation: No Lack of Food: Never True Current Housing: I Have Housing Concerned About Future Housing: No Difficulty Paying Gas/Electric Bills: No Difficulty Paying for Meds: No Currently Unemployed: No Education: High School Diploma/GED Difficulty w/ Childcare or Family Care: No Spiritual care concerns: No Same Day Admit/Disch: Med Pre-admit Medications Home Medications Medication Instructions Recorded Confirmed Type mycophenolate mofetil 500 mg tablet 500 mg PO BID 05/21/22 08/21/22 History rosuvastatin 5 mg tablet 5 mg PO DAILY 05/21/22 08/21/22 History omeprazole 20 mg capsule,delayed 20 mg PO BID 08/21/22 08/21/22 History release Exam Narrative: General: No acute distress, alert and oriented per baseline HEENT: Atraumatic, normocephalic, mucous membranes moist CV: Regular rate and rhythm, S1, S2 Lungs: Clear to auscultation bilaterally, no rales or crackles noted, no wheezes, good air entry Abdomen: Soft, nontender, nondistended Extremities: Normal to inspection Skin: No rashes noted, no lesions or wounds seen Psych: Euthymic, normal affect DS: Data Data Completed and Pending Labs on day of discharge: Labs from last 24 hours 08/21/22 08/21/22 08/21/22 06:13 05:48 05:20 WBC RBC Hgb Hct MCV MCH MCHC RDW Plt Count MPV Immature Gran % (Auto) Neut % (Auto) Lymph % (Auto) Gem % (Auto) Eos % (Auto) Baso % (Auto) Lymph # (Auto) Gem # (Auto) Eos # (Auto) Baso # (Auto) Abs Immat Gran (auto) Absolute Neuts (auto) Absolute Nucleated RBC Nucleated RBC % PT INR APTT Sodium Potassium Chloride Carbon Dioxide Anion Gap BUN Creatinine Estim Creat Clear Calc Estimated GFR Glucose POC Capillary Glucose Lactic Acid 1.3 Calcium Magnesium Total Bilirubin AST ALT Alkaline Phosphatase Troponin I NT-Pro-B Natriuret Pep 466 H Total Protein Albumin Lipase Urine Color Yellow Urine Appearance Clear Urine pH 7.0 Ur Specific [place] 1.020 Urine Protein Trace Urine Glucose (UA) Negative Urine Ketones Negative Ur Blood (Man) Trace-intact Urine Nitrate Negative Urine Bilirubin Negative Urine Urobilinogen 1.0 Leukocyte Esterase Rfl Negative Urine RBC 21-50 H Urine WBC 4-6 H Urine Bacteria Trace Urine Mucus Rare Influenza A (RT-PCR) Influenza B (RT-PCR) RSV (RT-PCR) SARS-CoV-2
== END 2022-08-21 17:46 | disposition home or self-care (01) ==
LOC: ANHED 06:33 → ANH3MEDSUR 12:45
PROVIDERS: Admitting Provider Student in an Organized Health Care Education/Training Program; Emergency Provider Emergency Medicine; PCP Internal Medicine; Visit Provider Student in an Organized Health Care Education/Training Program
DX: R53.1 Weakness (principal); R50.9 Fever, unspecified; R41.82 Altered mental status, unspecified; J84.9 Interstitial pulmonary disease, unspecified; E78.00 Pure hypercholesterolemia, unspecified; R05.9 Cough, unspecified; R06.09 Other forms of dyspnea; Z20.822 Contact with and (suspected) exposure to COVID-19; Z79.899 Other long term (current) drug therapy; Z87.891 Personal history of nicotine dependence; Z86.73 Personal history of transient ischemic attack (TIA), and cerebral infarction without residual deficits
CPT/HCPCS: 36415; 51701; 70450; 71045; 80053; 81001; 82948; 83605; 83690; 83735; 83880; 84484; 85025; 85610; 85730; 87040; 87637; 93005; 96360; 99285; A9270; G0378; J7030

== ENCOUNTER 2023-07-27 13:14 | Emergency (ER) | payer MEDICARE, SELFPAY ==
--- NOTE | ~2023-07-27 | CT_ITS ---
CT head without contrast Indication: Trauma COMPARISON: 08/21/2022 Technique: Serial scans were obtained through the brain without the administration of contrast. Dose reduction technique was used on this scan by utilizing automated exposure control and iterative recon struction technique. The dose-length product (DLP) was 605.33 mGy-cm. Findings: There is no evidence of intracranial hemorrhage, mass lesion, or acute infarct. The ventri cles and subarachnoid spaces are dilated, consistent with outlet atrophy. Low attenuation regions ar e seen within the periventricular white matter bilaterally, likely representing changes from chronic microvascular ischemic disease. There is no evidence of edema, mass effect or midline shift. The vi sualized paranasal sinuses and mastoid air cells are clear. Impression: No intracranial hemorrhage, mass, or acute infarct. Atrophy and chronic white matter changes, as above. Reviewed, dictated and finalized at [facility]. GEMENT SUPERVISOR Impression: No intracranial hemorrhage, mass, or acute infarct. Atrophy and chronic white matter changes, as above.
--- NOTE | ~2023-07-27 | CT_ITS ---
CT Facial Bones and Cervical Spine Clinical Indication: Trauma Technique: Contiguous axial scans were obtained through the facial bones and cervical spine followed by coronal and sagittal reconstructions. Dose reduction technique was used on this scan by utilizing automated exposure control and iterative reconstruction technique. The dose-length product (DLP) was 385.54 mGy-cm. Findings: CT facial bones: No fractures are identified. The visualized paranasal sinuses are clear. Intraorbita l soft tissues appear normal. CT cervical spine: No fractures or subluxation. There is moderate to advanced degenerative disc bernal ge at C4-C5, C5-C6, and C6-C7. There is moderate degenerative change at the articulation of the odont oid process and anterior arch of C1. There is right neural foraminal narrowing at C2-C3, probable rig ht facet arthropathy. There is mild disc bulge at this level. There is probable right facet arthropathy at C3-C4, with probable mild bilateral neural foraminal pavithra rowing. No central canal stenosis evident. There is mild disc bulge however. There is left neural foraminal narrowing at C4-C5, with mild disc ossify complex and mild bilateral f acet arthropathy. There is mild bilateral neural foraminal narrowing, left worse than right, at C5-C6, with mild disc o ssify complex present. There is mild disc osteophyte complex at C6-C7 with possible mild bilateral neural foraminal narrowin g. No prevertebral soft tissue swelling. Impression: No fracture is seen in the facial bones. No fracture or subluxation of the cervical spine. Degenerative spondylosis, as above. Reviewed, dictated and finalized at [facility]. NCE TECHNICIANS Impression: No fracture is seen in the facial bones. No fracture or subluxation of the cervical spine. Degenerative spondylosis, as above.
[2023-07-27 13:16] VITALS: BP 164/104; PULSE 85; RESP 16; TEMP 36.8; O2SAT 98
[2023-07-27 13:37] VITALS: BP 154/88; PULSE 82; RESP 16; O2SAT 97
--- NOTE | 2023-07-27 14:17 | ED.GENADULT ---
HPI - General Adult General Chief complaint: Head Injury Stated complaint: head injury from fall Time Seen by Provider: 07/27/23 13:19 History of Present Illness HPI narrative: 83-year-old male presenting to the emergency department for evaluation after having a slip on the ice resulting in a head injury. Patient was walking out of a restaurant when he slipped on ice and fell striking his head a parking block. Patient denies any loss of consciousness. Patient was able to stand and presented to the emergency department by private transport. Patient denies any other pain or injury. Related Data Home Medications Medication Instructions Recorded Confirmed mycophenolate mofetil 500 mg tablet 500 mg PO BID 05/21/22 08/21/22 rosuvastatin 5 mg tablet 5 mg PO DAILY 05/21/22 08/21/22 omeprazole 20 mg capsule,delayed 20 mg PO BID 08/21/22 08/21/22 release Allergies Allergy/AdvReac Type Severity Reaction Status Date / Time ANTILIPEMIC Allergy Unknown Unknown Uncoded 08/21/22 07:50 Review of Systems Review of Systems: All systems reviewed & are unremarkable except as noted in HPI and below PMFSH Past Medical History Medical History Hypercholesterolemia Family History Family History Mother CHF (congestive heart failure) Father CHF (congestive heart failure) Other Unknown family medical history Social History Social History Smoking packs per day: 0.5 Smoking cigarettes per day: 10.0 Years smoked: 26 Smoking pack-years: 13.00 Smoking status: Former smoker Tobacco type: cigarettes Alcohol intake: never Substance use: never Substance use type: does not use Lack of Transportation: No Lack of Food: Never True Current Housing: I Have Housing Concerned About Future Housing: No Difficulty Paying Gas/Electric Bills: No Difficulty Paying for Meds: No Currently Unemployed: No Education: High School Diploma/GED Difficulty w/ Childcare or Family Care: No Spiritual care concerns: No Exam Narrative: APPEARANCE: Well appearing, no pain, no distress, well-nourished. HEAD: normocephalic, laceration to left forehead. EYES: PERRLA/EOMI, conjunctivae clear. NOSE: Normal no drainage NECK: Supple. No adenopathy, no masses. RESPIRATORY: Airway patent, respirations nonlabored. Clear to auscultation bilaterally, no rales, rhonchi, wheezing. CARDIOVASCULAR: Regular rate and rhythm without murmurs rubs or gallops. ABDOMINAL: Soft, nontender, nondistended, normal bowel sounds MUSCULOSKELETAL: Moves all extremities. Strength/ROM intact, No edema, No calf tenderness. NEURO: Alert. Cranial nerves II through XII intact. Grossly intact SKIN: Laceration. Course Course Emergency Course: 83-year-old male presenting to the ED for evaluation after a fall and subsequent facial laceration. Laceration was repaired as described. Patient's head facial and cervical spine CT were negative. Patient was able to ambulate at his baseline. Patient and family are updated on wound care. All questions concerns were addressed. Vital Signs Vital signs: Vital Signs Temperature 98.2 F 07/27/23 13:16 Pulse Rate 85 07/27/23 13:16 Respiratory Rate 16 07/27/23 13:16 Blood Pressure 164/104 H 07/27/23 13:16 Pulse Oximetry 98 07/27/23 13:16 Temperature 98.2 F 07/27/23 13:16 Pulse Rate 62 07/27/23 15:04 Respiratory Rate 16 07/27/23 15:04 Blood Pressure 121/67 07/27/23 15:04 Pulse Oximetry 100 07/27/23 15:04 Procedures Laceration Laceration 1: Site: face Side (If applicable): left Size (cm): 3 Description: flap and irregular Depth: simple, single layer Local Anesthetic: lidocaine 1% and with epi Amount of anesthesia used (mL): 2 Pre-repair: wound explored, ir
[2023-07-27 14:24] VITALS: BP 147/70; PULSE 62; RESP 16; O2SAT 99
[2023-07-27 15:04] VITALS: BP 121/67; PULSE 62; RESP 16; O2SAT 100
== END 2023-07-27 15:13 | disposition home or self-care (01) ==
PROVIDERS: Emergency Provider Emergency Medicine; PCP Internal Medicine
DX: S01.81XA Laceration without foreign body of other part of head, initial encounter (principal); E78.00 Pure hypercholesterolemia, unspecified; Z87.891 Personal history of nicotine dependence; W00.0XXA Fall on same level due to ice and snow, initial encounter
CPT/HCPCS: 12013; 70450; 70486; 72125; 99284

== ENCOUNTER 2023-08-09 12:07 | Inpatient (IN) | payer MEDICARE, SELFPAY ==
--- NOTE | ~2023-08-09 | XR_ITS ---
XR hip LT 2V w AP pelvis 08/09/2023 13:19 Indication: Left hip pain with limited range of motion motion Procedure: 4 views left hip including AP pelvis Comparison: No prior studies for comparison. Findings: Comminuted displaced left femoral intertrochanteric fracture with varus angulation. There i s a right hip arthroplasty. There is residual contrast in the bladder. Impression: 1: Comminuted displaced left femoral intertrochanteric fracture. Reviewed, dictated and finalized at location B. RUMENT INSTALLER Impression: 1: Comminuted displaced left femoral intertrochanteric fracture.
--- NOTE | ~2023-08-09 | CT_ITS ---
EXAMINATION: CTA abdomen pelvis DATE: 08/09/2023 14:16 INDICATION: AAA on CT lumbar spine TECHNIQUE: Computed tomography (CT) of the abdomen and pelvis was performed with 100 mL Omnipaque-350 intravenous contrast in the arterial phase. Automated exposure control and iterative reconstruction technique were employed. The dose-length product was 1342.09 mGy-cm. COMPARISON: CT lumbar spine, same date.. FINDINGS: Lower thorax: Dilated central pulmonary arteries as can be seen with pulmonary arterial hypertension. Peripheral basilar fibrosis in a UIP pattern. Coronary artery calcification. Small hiatal hernia. Liver: Simple left lobe cyst. Biliary/Gallbladder: Cholelithiasis. No bile duct dilation. Pancreas: No mass or duct dilation. Spleen: Normal. Adrenals:No mass. Kidneys: 5.1 cm simple right upper pole cyst. Bilateral subcentimeter hypodensities, also likely repr esent cysts. No suspicious mass or hydronephrosis. No obstructing calcification. GI tract: No small or large bowel dilation. Small normal appendix versus normal appendiceal stump. Mesentery/Peritoneum: No ascites, mass, or free air. Retroperitoneum: No mass. Atherosclerotic abdominal aortic and/or arterial calcifications. 3.8 cm fus iform infrarenal abdominal aortic aneurysm. Pelvis: Obscuration from metal artifact. Distended urinary bladder with small diverticuli, no wall th ickening. Soft Tissues: Soft tissues and body wall unremarkable. Bones: No acute osseous finding. Partially visualized, uncomplicated appearing right hip arthroplast y hardware. Left intertrochanteric fracture. IMPRESSION: Pulmonary fibrosis. 3.8 cm fusiform infrarenal abdominal aortic aneurysm. Recommend outpatient ultrasound aorta follow-up in 2 years. Distended urinary bladder without wall thickening, correlate with symptoms of urinary retention. Left intertrochanteric femoral fracture. Reviewed, dictated and finalized at location K. PRESIDENT & GENERAL MANAGER [employer] IMPRESSION: Pulmonary fibrosis. 3.8 cm fusiform infrarenal abdominal aortic aneurysm. Recommend outpatient ultr asound aorta follow-up in 2 years. Distended urinary bladder without wall thickening, correlate with symptoms of u rinary retention. Left intertrochanteric femoral fracture.
--- NOTE | ~2023-08-09 | CT_ITS ---
EXAMINATION: CT brain wo con DATE: 08/09/2023 13:30 INDICATION: Status post fall. Head injury. TECHNIQUE: Computed tomography (CT) of the head was performed without intravenous contrast. The dose- length product was 681.00 mGy-cm. Automated exposure control and iterative reconstruction technique w ere employed. COMPARISON: CT dated 07/27/2023 FINDINGS: Generalized atrophy. There are scattered mild periventricular and subcortical white matter changes, most likely related to small vessel ischemic disease (microangiopathy). There is intracrania l atherosclerosis. No acute intracranial hemorrhage, infarction, mass or mass effect. No ventriculome mary or midline shift. Basilar cisterns are patent. IMPRESSION: 1. No acute intracranial abnormality. Reviewed, dictated and finalized at location B. ERCIAL ACCOUNT EXECUTIVE
--- NOTE | ~2023-08-09 | XR_ITS ---
XR surgery orthopedic 08/10/2023 09:13 Indication: Intraoperative fixation of left femoral intertrochanteric fracture with IT nail. Procedure: 7 fluoroscopic views of the left hip and femur. 55 seconds of fluoroscopy. Comparison: No prior studies for comparison. Findings: Serial images demonstrate placement of an intertrochanteric nail transfixed by intramedulla ry femoral kenny. There is a single distal interlocking screw. The fracture fragments in near-anatomic alignment post reduction. Impression: 1: Near-anatomic alignment of left proximal femoral fracture transfixed by intertrochanteric nail. Reviewed, dictated and finalized at location A. L STRUCTURAL ENGINEER Impression: 1: Near-anatomic alignment of left proximal femoral fracture transfixed by inte rtrochanteric nail.
--- NOTE | ~2023-08-09 | CT_ITS ---
EXAMINATION: CT cervical spine wo con DATE: 08/09/2023 13:30 INDICATION: Status post fall. Neck pain. TECHNIQUE: Computed tomography (CT) of the cervical spine was performed without intravenous contrast. The dose-length product was 420 mGy-cm. Automated exposure control and iterative reconstruction tech nique were employed. COMPARISON: CT dated 07/27/2023 FINDINGS: Stable degenerative anterolisthesis at C7-T1 secondary to facet hypertrophy. There is advan kassandra multilevel uncinate and facet hypertrophy. Odontoid process is normal. Vertebral body heights are maintained. Craniovertebral junction is normal. No evidence for perched facet. There is chronic inte rstitial fibrosis of the lung apices. There is carotid atherosclerosis. IMPRESSION: 1. No acute abnormality of the cervical spine and no significant change compared with 07/27/2023. 2: Severe cervical spondylosis. Reviewed, dictated and finalized at location B. LIBRARY DIRECTOR IMPRESSION: 1. No acute abnormality of the cervical spine and no significant change compare d with 07/27/2023. 2: Severe cervical spondylosis.
--- NOTE | ~2023-08-09 | CT_ITS ---
EXAMINATION: CT lumbar spine wo con DATE: 08/09/2023 13:30 INDICATION: Back pain after fall TECHNIQUE: Computed tomography (CT) of the lumbar spine was performed without intravenous contrast. Raman elaine dose-length product was 1162.11 mGy-cm. Automated exposure control and iterative reconstruction te chnique were employed. COMPARISON: No prior studies for comparison. FINDINGS: Severe lower thoracic and lumbar spondylosis. No acute fracture or traumatic malalignment. No evidence for spondylolisthesis. Mild dextrocurvature of the lumbar spine. There is extensive ather osclerosis with aneurysmal dilation of the aorta, partially visualized. Recommend correlation with de dicated CT abdomen with contrast for further evaluation. IMPRESSION: 1. No acute abnormality of the lumbar spine. Severe lumbar spondylosis. 2: Abdominal aortic aneurysm partially visualized. Recommend correlation with CT abdomen with contras t. Reviewed, dictated and finalized at location B. P BURNER MACHINE IMPRESSION: 1. No acute abnormality of the lumbar spine. Severe lumbar spondylosis. 2: Abdominal aortic aneurysm partially visualized. Recommend correlation with C T abdomen with contrast.
[2023-08-09 12:15] VITALS: BP 158/103; PULSE 99; RESP 19; TEMP 36.4; O2SAT 97
--- NOTE | 2023-08-09 12:58 | ED.FALL ---
HPI - Fall General Chief Complaint: Fall Stated Complaint: fall, L hip pain Time Seen by Provider: 08/09/23 12:42 History of Present Illness HPI Narrative: Patient is an 83-year-old male presenting with left hip pain. Patient states that he was getting out of bed when he stumbled and fell forward striking his face and landing on his left side. States he immediately had severe pain in his left hip and left lower back. Denies numbness or weakness. Does not think he lost consciousness. Denies pain anywhere else. Related Data Home Medications Medication Instructions Recorded Confirmed rosuvastatin 5 mg tablet 5 mg PO DAILY 05/21/22 08/09/23 omeprazole 20 mg capsule,delayed 20 mg PO BID 08/21/22 08/09/23 release aspirin 81 mg tablet,delayed 81 mg PO DAILY 08/09/23 08/09/23 release levothyroxine 100 mcg tablet 100 mcg PO DAILY 08/09/23 08/09/23 (Synthroid) tramadol 50 mg tablet 50 mg PO DAILY PRN pain 08/09/23 08/09/23 Allergies Allergy/AdvReac Type Severity Reaction Status Date / Time ANTILIPEMIC Allergy Unknown Unknown Uncoded 08/09/23 12:28 Review of Systems Review of Systems: All systems reviewed & are unremarkable except as noted in HPI and below PMFSH Past Medical History Medical History Abdominal aortic aneurysm 3.8 cm fusiform infrarenal abdominal aortic aneurysm noted on CT on 08/09/2023. Gastroesophageal reflux disease Hyperlipidemia Hypothyroidism Pulmonary fibrosis Thyroid cancer Surgical History Surgical History History of arthroplasty of left knee (02/2011) History of arthroplasty of right knee (09/2005) History of cataract extraction History of lumbar surgery (1972) History of right hip hemiarthroplasty (01/2008) Repair right subcapital femoral neck fracture. History of thyroidectomy Family History Family History Mother CHF (congestive heart failure) Father CHF (congestive heart failure) Heart disease Hypertension Sibling Cerebrovascular accident Sibling Diabetes mellitus Other Unknown family medical history Social History Social History Social History: Surrogate medical decision maker: Williams Virk (child). Code status: Full code. Smoking packs per day: 0.5 Smoking cigarettes per day: 10.0 Years smoked: 26 Smoking pack-years: 13.00 Smoking status: Never smoker Tobacco type: cigarettes Alcohol intake: never Substance use: never Substance use type: does not use Lack of Transportation: No Lack of Food: Never True Current Housing: I Have Housing Concerned About Future Housing: No Difficulty Paying Gas/Electric Bills: No Difficulty Paying for Meds: No Currently Unemployed: No Education: High School Diploma/GED Difficulty w/ Childcare or Family Care: No Spiritual care concerns: No Exam Narrative: GENERAL: Nontoxic, uncomfortable appearing, pleasant cooperative HEAD: Normocephalic, atraumatic. EYES: PERRLA and EOMI. ENT: Grossly unremarkable NECK: Supple. CHEST: No respiratory distress. HEART: Regular rate and rhythm ABDOMEN: Soft, nontender, nondistended EXTREMITIES: left leg is externally rotated, slightly shortened, neurovascularly intact SKIN: Warm, dry, no rash. NEURO: Alert and oriented x3. PSYCH: Normal mood and affect. Course Vital Signs Vital signs: Vital Signs Temperature 97.6 F 08/09/23 12:15 Pulse Rate 99 08/09/23 12:15 Respiratory Rate 19 08/09/23 12:15 Blood Pressure 158/103 H 08/09/23 12:15 Pulse Oximetry 97 08/09/23 12:15 Temperature 97.5 F L 08/10/23 12:40 Pulse Rate 92 08/10/23 12:40 Respiratory Rate 16 08/10/23 12:40 Blood Pressure 146/70 H 08/10/23 12:40 Pulse Oximetry 97 08/10/23 12:40 Oxygen Delivery Room Air 08/10/23 15:08
[2023-08-09] MEDS: HYDROmorphone HCL INJ (*CRX) 1 MG/ML SYR 0.5 MG IV PUSH (13:37)
[2023-08-09 13:38] VITALS: BP 155/106; PULSE 98; RESP 18; O2SAT 98
[2023-08-09 13:45] LABS: Basophils Percent Auto 0.3 % (0.2-1.2); Eosinophils Absolute Auto 0.1 K/mm3 (0-0.3); Eosinophils Percent Auto 0.7 % (0-4.4); Hematocrit 37.9 % (42.0-52.0); Immature Granulocyte Absolute 0.05 K/mm3 (0.00-0.031); Immature Granulocyte Percent A 0.4 % (0-0.5); Lymphocytes Absolute Auto 0.86 K/mm3 (0.9-3.2); Lymphocytes Percent Auto 7.5 % (18.3-44.2); Mean Corpuscular HGB Conc 31.7 g/dl (32-36); Mean Corpuscular Hemoglobin 30.9 pg (26-34); Mean Corpuscular Volume 97.7 fl (80-100); Monocytes Percent Auto 8.7 % (2.6-8.5); Neutrophils Absolute Auto 9.4 K/mm3 (1.3-6.7); Neutrophils Percent Auto 82.4 % (45.5-73.1); Platelet Count Result 167 k/mm3 (150-375); Red Blood Count 3.88 M/mm3 (4.6-6.20); Red Cell Distribution Width 12.9 % (11.5-14.5); White Blood Count 11.4 K/mm3 (4.5-10.0)
[2023-08-09 13:59] LABS: Anion Gap 7 mmol/L (8-16); Blood Urea Nitrogen 25 mg/dL (9-20); Calcium 8.7 mg/dL (8.4-10.2); Carbon Dioxide 27 mmol/L (22-30); Chloride 104 mmol/L (98-107); Estimated CRCL calculation 73 ml/min; Estimated Glomerular Filt Rate > 60; Glucose 135 mg/dL (65-110); Potassium 3.8 mmol/L (3.4-5.0); Sodium 138 mmol/L (137-145)
--- NOTE | 2023-08-09 15:36 | PM.IMHP ---
H&P: HPI History of Present Illness Date/Time: 08/09/23 15:55 Chief Complaint: Left hip pain after fall. Narrative: This is an 83-year-old male with history of dementia, frequent falls, pulmonary fibrosis, hyperlipidemia, gastroesophageal reflux disease, thyroid cancer status post thyroidectomy, hypothyroidism, and arthritis who presented to the emergency department via EMS from home for evaluation of left hip pain after a fall. The patient provides the following history. While getting out of bed this morning he tripped over his shoe and fell to the ground, striking the the left side of his body. He had immediate pain in the left leg and hip and he was unable to get himself up. Imaging showed a left intertrochanteric femoral neck fracture and he is being admitted for pain control and ortho consult for repair. At the time my evaluation his pain is pretty well controlled as long as he is not moving the left hip. He denies headache, chest pain, shortness a breath, nausea, and vomiting. Review of Systems Review of Systems: Twelve systems were reviewed and are negative except for as per HPI. He stated no to every question to ask of him. He seems to have pretty significant short-term memory loss however in accuracy of his answers is questionable. [facility] Past Medical History Medical History Abdominal aortic aneurysm 3.8 cm fusiform infrarenal abdominal aortic aneurysm noted on CT on 08/09/2023. Gastroesophageal reflux disease Hyperlipidemia Hypothyroidism Pulmonary fibrosis Thyroid cancer Surgical History Surgical History History of arthroplasty of left knee (02/2011) History of arthroplasty of right knee (09/2005) History of cataract extraction History of lumbar surgery (1972) History of right hip hemiarthroplasty (01/2008) Repair right subcapital femoral neck fracture. History of thyroidectomy Family History Family History Mother CHF (congestive heart failure) Father CHF (congestive heart failure) Heart disease Hypertension Sibling Cerebrovascular accident Sibling Diabetes mellitus Other Unknown family medical history Social History Social History Social History: Surrogate medical decision maker: Williams Virk (child). Code status: Full code. Smoking packs per day: 0.5 Smoking cigarettes per day: 10.0 Years smoked: 26 Smoking pack-years: 13.00 Smoking status: Never smoker Tobacco type: cigarettes Alcohol intake: never Substance use: never Substance use type: does not use Lack of Transportation: No Lack of Food: Never True Current Housing: I Have Housing Concerned About Future Housing: No Difficulty Paying Gas/Electric Bills: No Difficulty Paying for Meds: No Currently Unemployed: No Education: High School Diploma/GED Difficulty w/ Childcare or Family Care: No Spiritual care concerns: No Meds Home Medications and Allergies Home Medications Medication Instructions Recorded Confirmed Type rosuvastatin 5 mg tablet 5 mg PO DAILY 05/21/22 08/09/23 History omeprazole 20 mg capsule,delayed 20 mg PO BID 08/21/22 08/09/23 History release aspirin 81 mg tablet,delayed 81 mg PO DAILY 08/09/23 08/09/23 History release levothyroxine 100 mcg tablet 100 mcg PO DAILY 08/09/23 08/09/23 History (Synthroid) tramadol 50 mg tablet 50 mg PO DAILY PRN pain 08/09/23 08/09/23 History Allergies Allergy/AdvReac Type Severity Reaction Status Date / Time ANTILIPEMIC Allergy Unknown Unknown Uncoded 08/09/23 12:28 Vital Signs Vital Signs - 24 hr 08/09/23 12:15 08/09/23 13:38 Temperature 97.6 F Pulse Rate 99 98 Respiratory Rate 19 18 Blood Pressure 158/103 H 155/106 H Pulse Oximetry 97 98 Exam Narrative: General: W
--- NOTE | 2023-08-09 15:39 | PM.CNOR ---
Assessment and Plan Assessment and plan (1) Displaced fracture of left femoral neck: Code(s): S72.002A - Fracture of unspecified part of neck of left femur, initial encounter for closed fracture Status: Acute Assessment and Plan: New patient evaluation for chief complaint left hip fracture. History, physical exam and radiographs reviewed with the patient. Fall at home. Left hip intertrochanteric fracture. Discussed the condition, nature, etiology and course of natural history with the patient. Treatment options including surgical and nonoperative treatment were reviewed. Risks and benefits of each as well as alternatives reviewed. The patient's questions were answered. Conservative treatment ice, pain control, mechanical dvt prophylaxis. Plan Discussed nonoperative and operative treatment options with the patient. Risks and benefits of each as well as alternatives were reviewed. All of the patient's questions were answered. The risks of surgery reviewed including but not limited to: Neurovascular damage, wound complication, infection, blood clot, pulmonary embolus, stroke, myocardial infarction, and anesthetic risks up to and including . Continued pain and possible dysfunction were explained. Specific risks of the procedure including later recurrence of deformity. No guarantees were offered. If hardware used, discussed risk of failure/ breakage and possible need for removal. If complications occur, the patient understands the need for further treatment, possible further surgery. Patient verbalizes understanding and wishes to proceed. PLAN:Left hip trochanteric nail (intramedullary hip screw) History of Present Illness HPI Consult date: 08/10/23 Requesting physician: Giana Salazar MD Chief complaint: Left Hip Fracture Narrative: 83yo fell at home on to left side. Unable to ambulate. Brought to emergency room and found to have left hip fracture. Denies LOC/numbness/tingling. Review of Systems Constitutional: Constitutional: Denies fever(s) Eyes: Eyes: Denies blurry vision ENT: Reports Normal hearing present Cardiovascular: Cardiovascular: Denies chest pain and Denies dyspnea Respiratory: Respiratory: Denies dyspnea and Denies wheezing Gastrointestinal: Gastrointestinal: Denies abdominal pain Genitourinary: Genitourinary: Denies urinary urgency Musculoskeletal: Musculoskeletal: Reports as per HPI and Denies numbness Integumentary/Breasts: Skin/Breast: Denies changing lesions and Denies sores Neurologic: Reports Normal hearing present, Denies behavioral changes, Denies confusion, Denies numbness and Denies convulsions Psychiatric: Psychiatric: Denies behavioral changes, Denies confusion and Denies hallucinations Endocrine: Endocrine: Denies heat intolerance Hematologic/Lymphatic: Hematologic/Lymphatic: Denies easy bleeding Allergic/Immunologic: Allergic/Immunologic: Denies wheezing PMFSH Past Medical History Medical History Abdominal aortic aneurysm 3.8 cm fusiform infrarenal abdominal aortic aneurysm noted on CT on 08/09/2023. Gastroesophageal reflux disease Hyperlipidemia Hypothyroidism Pulmonary fibrosis Thyroid cancer Surgical History Surgical History History of arthroplasty of left knee (02/2011) History of arthroplasty of right knee (09/2005) History of cataract extraction History of lumbar surgery (1972) History of right hip hemiarthroplasty (01/2008) Repair right subcapital femoral neck fracture. History of thyroidectomy Family History Family History Mother CHF (congestive heart failure) Father CHF (congestive heart failure) Heart disease Hypertension Sibling Cerebrovascular accident Sibling Diabetes mellitus Other Unknown family medical history Social History Social History (
[2023-08-09 15:46] VITALS: BP 119/79; PULSE 95; RESP 17; O2SAT 100
[2023-08-09 16:35] VITALS: O2SAT 96
[2023-08-09] MEDS: MORPHINE SULFATE (*CRX) 2 MG/ML INJ IV PUSH ×2 (16:35→19:39)
[2023-08-09 22:00] VITALS: BP 121/82; PULSE 93; RESP 16; TEMP 36.3; O2SAT 97
[2023-08-10] VITALS (13 sets, daily range): BP systolic 105–156; BP diastolic 62–94; PULSE 64–92; RESP 12–21; TEMP 35.9–36.8; O2SAT 94–100
[2023-08-10] MEDS: traMADol HCL (*CRX) 50 MG TABLET PO (02:50)
[2023-08-10] MEDS: MORPHINE SULFATE (*CRX) 2 MG/ML INJ IV PUSH (04:47)
[2023-08-10 07:16] LABS: Basophils Percent Auto 0.2 % (0.2-1.2); Eosinophils Absolute Auto 0.1 K/mm3 (0-0.3); Eosinophils Percent Auto 1.2 % (0-4.4); Hematocrit 32.8 % (42.0-52.0); Hemoglobin 10.4 g/dL (14.0-18.0); Immature Granulocyte Absolute 0.03 K/mm3 (0.00-0.031); Immature Granulocyte Percent A 0.3 % (0-0.5); Lymphocytes Absolute Auto 1.22 K/mm3 (0.9-3.2); Lymphocytes Percent Auto 13.8 % (18.3-44.2); Mean Corpuscular HGB Conc 31.7 g/dl (32-36); Mean Corpuscular Hemoglobin 31.5 pg (26-34); Mean Corpuscular Volume 99.4 fl (80-100); Mean Platelet Volume 10.2 fl (7.4-10.4); Monocytes Absolute Auto 1.1 K/mm3 (0.1-0.6); Monocytes Percent Auto 12.8 % (2.6-8.5); Neutrophils Absolute Auto 6.3 K/mm3 (1.3-6.7); Neutrophils Percent Auto 71.7 % (45.5-73.1); Platelet Count Result 161 k/mm3 (150-375); Red Cell Distribution Width 12.8 % (11.5-14.5); White Blood Count 8.8 K/mm3 (4.5-10.0)
[2023-08-10 07:27] LABS: Alanine Aminotransferase 17 U/L (6-50); Albumin Level 3.3 g/dL (3.5-5.1); Alkaline Phosphatase 63 U/L (38-126); Anion Gap 4 mmol/L (8-16); Aspartate Amino Transferase 32 U/L (17-59); Bilirubin,Total 1.2 mg/dL (0.2-1.3); Blood Urea Nitrogen 30 mg/dL (9-20); Calcium 8.5 mg/dL (8.4-10.2); Carbon Dioxide 28 mmol/L (22-30); Chloride 105 mmol/L (98-107); Estimated CRCL calculation 73 ml/min; Estimated Glomerular Filt Rate > 60; Glucose 115 mg/dL (65-110); Magnesium 2.1 mg/dL (1.6-2.3); Potassium 3.9 mmol/L (3.4-5.0); Sodium 137 mmol/L (137-145)
--- NOTE | 2023-08-10 07:33 | WPDHPUPDATE1 ---
History and Physical Update Update Date/Time: 08/10/23 07:33 History and Physical has been reviewed, including an updated exam of the patient. There are NO changes in the patient's condition. Risks, benefits, and alternatives have been discussed and questions answered. Patient agrees to proceed with procedure.
--- NOTE | 2023-08-10 08:02 | WPDANESEPPF ---
Anes - Initial Pre Proc Eval Procedure: Operation Date: 08/10/23 08:00 Proposed Procedures p Intertrochanteric Nail(Left) - Jovani Winters MD Date/Time: 08/10/23 08:02 Surgeon: Tanner Szymanski MD Pre Op Diagnosis: Left Hip Fracture Patient Data Age: 83 Gender: M Height: 1.83 m Weight: 90.1 kg Last Vital Signs Temp 36.7 C 08/10/23 06:00 Pulse 64 08/10/23 06:00 Resp 18 08/10/23 06:00 BP 131/68 08/10/23 06:00 Pulse Ox 99 08/10/23 06:00 O2 Del Method Room Air 08/09/23 20:00 Allergies Allergy/AdvReac Type Severity Reaction Status Date / Time ANTILIPEMIC Allergy Unknown Unknown Uncoded 08/09/23 12:28 Home Medications Medication Instructions Recorded Confirmed Type rosuvastatin 5 mg tablet 5 mg PO DAILY 05/21/22 08/09/23 History omeprazole 20 mg capsule,delayed 20 mg PO BID 08/21/22 08/09/23 History release aspirin 81 mg tablet,delayed 81 mg PO DAILY 08/09/23 08/09/23 History release levothyroxine 100 mcg tablet 100 mcg PO DAILY 08/09/23 08/09/23 History (Synthroid) tramadol 50 mg tablet 50 mg PO DAILY PRN pain 08/09/23 08/09/23 History Laboratory Tests 08/09/23 08/10/23 13:35 06:46 WBC 11.4 H K/mm3 8.8 K/mm3 (4.5-10.0) (4.5-10.0) RBC 3.88 L M/mm3 3.30 L M/mm3 (4.6-6.20) (4.6-6.20) Hgb 12.0 L g/dL 10.4 L g/dL (14.0-18.0) (14.0-18.0) Hct 37.9 L % 32.8 L % (42.0-52.0) (42.0-52.0) MCV 97.7 fl 99.4 fl (80-100) (80-100) MCH 30.9 pg 31.5 pg (26-34) (26-34) MCHC 31.7 L g/dl 31.7 L g/dl (32-36) (32-36) RDW 12.9 % 12.8 % (11.5-14.5) (11.5-14.5) Plt Count 167 k/mm3 161 k/mm3 (150-375) (150-375) MPV 10.0 fl 10.2 fl (7.4-10.4) (7.4-10.4) Immature Gran % (Auto) 0.4 % 0.3 % (0-0.5) (0-0.5) Neut % (Auto) 82.4 H % 71.7 % (45.5-73.1) (45.5-73.1) Lymph % (Auto) 7.5 L % 13.8 L % (18.3-44.2) (18.3-44.2) [place] % (Auto) 8.7 H % 12.8 H % (2.6-8.5) (2.6-8.5) Eos % (Auto) 0.7 % 1.2 % (0-4.4) (0-4.4) Baso % (Auto) 0.3 % 0.2 % (0.2-1.2) (0.2-1.2) Lymph # (Auto) 0.86 L K/mm3 1.22 K/mm3 (0.9-3.2) (0.9-3.2) [place] # (Auto) 1.0 H K/mm3 1.1 H K/mm3 (0.1-0.6) (0.1-0.6) Eos # (Auto) 0.1 K/mm3 0.1 K/mm3 (0-0.3) (0-0.3) Baso # (Auto) 0.0 K/mm3 0.0 K/mm3 (0.0-0.1) (0.0-0.1) Abs Immat Gran (auto) 0.05 H K/mm3 0.03 K/mm3 (0.00-0.031) (0.00-0.031) Absolute Neuts (auto) 9.4 H K/mm3 6.3 K/mm3 (1.3-6.7) (1.3-6.7) Absolute Nucleated RBC 0.0 K/mm3 0.0 K/mm3 (0.0-0.012) (0.0-0.012) Nucleated RBC % 0.0 % 0.0 % (0.0-0.2) (0.0-0.2) Sodium 138 mmol/L 137 mmol/L (137-145) (137-145) Potassium 3.8 mmol/L 3.9 mmol/L (3.4-5.0) (3.4-5.0) Chloride 104 mmol/L 105 mmol/L (98-107) (98-107) Carbon Dioxide 27 mmol/L 28 mmol/L (22-30) (22-30) Anion Gap 7 L mmol/L 4 L mmol/L (8-16) (8-16) BUN 25 H mg/dL 30 H mg/dL (9-20) (9-20) Creatinine 0.70 mg/dL 0.70 mg/dL (0.7-1.3) (0.7-1.3) Estim Creat Clear Calc 73 ml/min 73 ml/min Estimated GFR > 60 > 60 (59 - ) (59 - ) Glucose 135 H mg/dL 115 H mg/dL (65-110) (65-110) Calcium 8.7 mg/dL 8.5 mg/dL (8.4-10.2) (8.4-10.2) Magnesium 2.1 mg/dL (1.6-2.3) Total Bilirubin 1.2 mg/dL (0.2-1.3) AST 32 U/L (17-59) ALT 17 U/L (6-50) Alkaline Phosphatase 63 U/L (38-126) Total Protein 7.0 g/dL (6.3-8.2) Albumin 3.3 L g/dL (3.5-5.1) TSH (Reflex) 4.330 uIU/mL (0.465-4.68) Free T4 Pending Patient hx anesthesia problems: none Family hx anesthesia problems: none Results Review: All pre-operative results and documents have been reviewed as part of the pre-operative evaluation. [facility] Past Medical History Medical History Abdominal aortic aneurysm 3.8 cm fusiform infrare
--- NOTE | 2023-08-10 08:21 | PCOTNOTE ---
Pt. plan for surgery today. Will see s/p, when bed rest orders are changed.
[2023-08-10] MEDS: ceFAZolin 2 GM/D5W 50 ML 2 GM/50 ML BAG IVPB (08:26)
[2023-08-10] MEDS: TRANEXAMIC ACID 1,000MG/ISO100 1,000 MG/100 ML BAG 200 MG IVPB (08:37)
[2023-08-10] MEDS: BUPIVACAINE/EPINEPHRINE 0.5% 50 ML VIAL 30 ML INFILTRATE (08:41)
[2023-08-10 08:59] LABS: Free T4 Free Thyroxine Reflex 1.18 ng/dL (0.78-2.19)
--- NOTE | 2023-08-10 09:20 | W.PM.PROC2 ---
Procedure Note - Detailed Date of Procedure 08/10/23 Pre-op Diagnosis Left Hip Fracture Post-op Diagnosis Same Procedure Performed Left hip intramedullary hip screw Surgeon Jovani Winters MD Communication Coordinator 1st dental front office assistant Anesthesia General Indications 83-year-old who fell and sustained left hip intertrochanteric fracture. Patient desires operative treatment. Indicated for intramedullary hip screw. Description of Procedure After informed consent the operative extremity was marked in the preoperative holding area. Patient received intravenous antibiotics. The patient was taken to the operative room, placed in the supine position, general anesthesia induced by the anesthesia team, and was placed on a fracture table with longitudinal traction applied to the left leg. The hip fracture was reduced to near anatomic position and verified with image intensification. A time-out was performed confirming the patient, site of the surgery and plan. The left lower extremity was prepped and draped sterilely from the knee to the iliac crest region using a ChloraPrep skin solution. Incision was made just proximal to greater trochanter down to the subcutaneous tissues. Hemostasis controlled with electrocautery. Blunt dissection through the fascia to the tip of the greater trochanter. A starter awl was placed at the tip of the greater trochanter into the medullary canal of the femur. This was checked with image intensification and was in good position. Intramedullary guide kenny positioned. A one-step hand reaming done proximally. Intramedullary canal was reamed with a 12.5 millimeter flexible reamer. Measuring was then performed off of the guide kenny. Neck angle selected off of preoperative radiographs temp plating. 125 degree 11 X 390 mm Nail opened on the back table and assembled. This was then inserted over the guide kenny to the correct depth. Guide kenny removed. Lag screw was then placed with a stab incision over the lateral femur using a 10 blade knife. Blunt dissection down to the lateral side of the bone. Soft tissue protectors placed. Guide pin placed in the center center position of the femoral head and measured. 105 millimeter x 10 millimeter lag screw placed to correct depth and verified with image intensification. Traction released from the leg and compression of the fracture performed with the external compression device. Distal locking of the nail necessary due to instability in the intramedullary canal and proximal femur. Stab incision made lateral mid thigh with the placement guide. Blunt dissection down lateral side of the femur. Soft tissue protector inserted. Image intensification used to guide drill which was placed through the locking hole. Distal femur measured and the appropriate size screw placed. Image intensification confirmed the placement through the locking hole. Final image intensification confirm reduction of the fracture and placement of the hardware. Wounds then thoroughly irrigated with antibiotic solution. Fascia repaired with 0 Vicryl interrupted suture. Subcutaneous tissue repaired with 00 Vicryl interrupted suture and skin approximated with 3-0 Monocryl interrupted suture and Dermabond. Sterile dressings applied. Patient then awoke from anesthesia, extubated, taken to recovery room stable condition. All sponge, needle and instrument counts correct at the end the case. Implants Arthrex 125 degree, 390 x 11 mm intramedullary nail with 105 mm lag screw and 38 mm distal locking screw. Estimated Blood Loss 100 Packing No Pathology None sent Complications None Condition Stable Disposition PACU [facility] Billing Surgery - Charge Forward: Surgery Billing ([id number])
[2023-08-10] MEDS: fentaNYL CITRATE INJ (*CRX) 100 MCG/2 ML VIAL 25 MCG IV PUSH ×3 (09:35→10:29)
[2023-08-10] MEDS: KETOROLAC 15 MG/ML VIAL (*BKC) IV PUSH (09:36)
[2023-08-10] MEDS: LACTATED RINGERS 1,000 ML 30 ML IV CONT (09:36)
[2023-08-10 09:43] LABS: Total Triiodothyronine (T3) 0.74 NG/ML (0.97-1.69)
[2023-08-10] MEDS: ROSUVASTATIN 5 MG TABLET PO (12:26)
[2023-08-10] MEDS: PANTOPRAZOLE 40 MG TABLET PO ×2 (12:26→16:17)
[2023-08-10] MEDS: KCL 20 MEQ/D5/0.45% SOD CHL 1,000 ML 80 ML IV CONT (12:26)
--- NOTE | 2023-08-10 13:43 | PC.NURSE ---
Patient taken to down to surgery at 0815 with family present. He returns approximately 1028. Family at bedside/in waiting room all morning. He is alert and wake when we brought him back to the floor. Patient at baseline with speech and memory. Patient tolerating liquid diet. Family remains at bedside. Will advance diet as tolerated. Pharmacy called to reset the administration time on the Famotidine.
--- NOTE | 2023-08-10 14:46 | PM.IMPN ---
Progress Note: A&P Assessment and Plan (1) Displaced fracture of left femoral neck: Code(s): S72.002A - Fracture of unspecified part of neck of left femur, initial encounter for closed fracture Status: Acute (2) Urinary retention: Code(s): R33.9 - Retention of urine, unspecified Status: Acute (3) Abdominal aortic aneurysm: Code(s): I71.40 - Abdominal aortic aneurysm, without rupture, unspecified Status: Acute (4) Pulmonary fibrosis: Code(s): J84.10 - Pulmonary fibrosis, unspecified Status: Acute (5) Hypothyroidism: Code(s): E03.9 - Hypothyroidism, unspecified Status: Acute (6) Hyperlipidemia: Code(s): E78.5 - Hyperlipidemia, unspecified Status: Acute Plan Closed traumatic Fracture of LT femur head -Surgery consulted -post-op day 1 -Dressing changes per surgery -Ambulate with assistance -incentive spirometer while awake -neurovascular checks distal to the surgical site -pain control -bowel regimen -PPI -DVT prophylaxis -Scd's -Daily labs Urinary retention -If no void q6 hours bladder scan -morales catheter urine >300 HX AAA no rupture -Stable 3.8 cm -F/U 2 years ultrasound Hypothyroidism -Resumed levothyroxine HLD -Resumed statin Code status: Full code per patient DVT prophylaxis: SCD's Stress ulcer prophylaxis: Protonix 40 daily PT/OT notes: PT/OT Disposition: Patient admitted for repair of fractured LT femur head. PT/OT evaluating will need SNF at discharge. CC consulted. -Patient's previous records reviewed on admission -ER notes reviewed in detail on admission -discussed all findings and current treatment plan with patient/Family/POA -Consultations reviewed for recommendations -Patient's disposition for safe discharge discussed with case packer and sealer Dictation performed by [employer] direct speech recognition software, therefore lamp inspector variants and typographical errors may occur. Time Spent With Patient Time with patient: 15 - 25 minutes Subjective Date/time seen: 08/10/23 14:46 Interval history: Chief Complaint: Left hip pain after fall. Narrative: This is an 83-year-old male with history of dementia, frequent falls, pulmonary fibrosis, hyperlipidemia, gastroesophageal reflux disease, thyroid cancer status post thyroidectomy, hypothyroidism, and arthritis who presented to the emergency department via EMS from home for evaluation of left hip pain after a fall. The patient provides the following history. While getting out of bed this morning he tripped over his shoe and fell to the ground, striking the the left side of his body. He had immediate pain in the left leg and hip and he was unable to get himself up. Imaging showed a left intertrochanteric femoral neck fracture and he is being admitted for pain control and ortho consult for repair. At the time my evaluation his pain is pretty well controlled as long as he is not moving the left hip. He denies headache, chest pain, shortness a breath, nausea, and vomiting. 08/10: Patient was up in chair working with PT post surgery. Moved back to bed with moderate pain reported. Patient currently confused family at bedside stated he does have some confusion at home this ismore than normal likely secondary to anesthesia. Patient in no acute distress pleasant and cooperative. site clean, intact, no erythema, swelling or bruising at site. Review of Systems Review of Systems: All systems reviewed & are unremarkable except as noted in HPI and below Exam Narrative: Physical Exam: - GENERAL: Alert and oriented x 3. No acute distress. Well-nourished. - EYES: EOMI. No scleral icterus. PERRLA. - HEENT: Healing bruise under the left eye Moist mucous membranes. No cervical lymphadenopathy. - LUNGS: Clear to auscultation bilaterally. No accessory muscle use. - CARDIOVASCULAR: Regular rate and rhythm. No murmur. No JVD. S1-S2 - ABDOMEN:
[2023-08-10] MEDS: ceFAZolin 1 GM/NS 50 ML 1 GM/50 ML BAG IVPB (16:17)
[2023-08-10] MEDS: SENNA/DOCUSATE SODIUM TABLET 2 TAB PO (16:17)
[2023-08-10] MEDS: MORPHINE SULFATE (*CRX) 4 MG/ML INJ 3 MG IV PUSH (18:12)
[2023-08-10] MEDS: LORazepam INJ (*CRX) 2 MG/ML VIAL 1 MG IV PUSH (21:58)
[2023-08-11 00:46] VITALS: BP 124/68; PULSE 79; RESP 16; TEMP 36.6; O2SAT 98
[2023-08-11] MEDS: MORPHINE SULFATE (*CRX) 4 MG/ML INJ 3 MG IV PUSH ×4 (02:10→22:54)
[2023-08-11] MEDS: ceFAZolin 1 GM/NS 50 ML 1 GM/50 ML BAG IVPB ×2 (02:10→08:08)
[2023-08-11] MEDS: KCL 20 MEQ/D5/0.45% SOD CHL 1,000 ML 80 ML IV CONT (04:40)
[2023-08-11 04:46] VITALS: BP 130/78; PULSE 63; RESP 18; TEMP 36.8; O2SAT 98
[2023-08-11 06:41] LABS: Basophils Percent Auto 0.1 % (0.2-1.2); Eosinophils Percent Auto 0.5 % (0-4.4); Hemoglobin 8.3 g/dL (14.0-18.0); Immature Granulocyte Absolute 0.05 K/mm3 (0.00-0.031); Immature Granulocyte Percent A 0.7 % (0-0.5); Lymphocytes Absolute Auto 0.78 K/mm3 (0.9-3.2); Lymphocytes Percent Auto 10.2 % (18.3-44.2); Mean Corpuscular HGB Conc 31.9 g/dl (32-36); Mean Corpuscular Hemoglobin 31.7 pg (26-34); Mean Corpuscular Volume 99.2 fl (80-100); Mean Platelet Volume 10.1 fl (7.4-10.4); Monocytes Percent Auto 13.4 % (2.6-8.5); Neutrophils Absolute Auto 5.8 K/mm3 (1.3-6.7); Neutrophils Percent Auto 75.1 % (45.5-73.1); Platelet Count Result 124 k/mm3 (150-375); Red Blood Count 2.62 M/mm3 (4.6-6.20); Red Cell Distribution Width 12.9 % (11.5-14.5); White Blood Count 7.7 K/mm3 (4.5-10.0)
[2023-08-11 07:00] LABS: Alanine Aminotransferase 16 U/L (6-50); Albumin Level 2.9 g/dL (3.5-5.1); Alkaline Phosphatase 58 U/L (38-126); Anion Gap 2 mmol/L (8-16); Aspartate Amino Transferase 33 U/L (17-59); Bilirubin,Total 0.8 mg/dL (0.2-1.3); Blood Urea Nitrogen 29 mg/dL (9-20); Calcium 8.1 mg/dL (8.4-10.2); Carbon Dioxide 29 mmol/L (22-30); Chloride 105 mmol/L (98-107); Estimated CRCL calculation 73 ml/min; Estimated Glomerular Filt Rate > 60; Glucose 137 mg/dL (65-110); Potassium 4.4 mmol/L (3.4-5.0); Sodium 136 mmol/L (137-145)
[2023-08-11 08:00] VITALS: O2SAT 98
[2023-08-11] MEDS: CELECOXIB 200 MG CAPSULE PO (08:04)
[2023-08-11] MEDS: ASPIRIN 81 MG ENTERIC TABLET PO (08:05)
[2023-08-11] MEDS: SENNA/DOCUSATE SODIUM TABLET 2 TAB PO ×2 (08:05→16:11)
[2023-08-11] MEDS: polyethylene glycoL 3350 17 GM POWD.PACK PO (08:05)
[2023-08-11] MEDS: ROSUVASTATIN 5 MG TABLET PO (08:05)
[2023-08-11] MEDS: FONDAPARINUX SODIUM 2.5 MG/0.5 ML SYRINGE SUB-Q (08:05)
[2023-08-11] MEDS: PANTOPRAZOLE 40 MG TABLET PO ×2 (08:05→16:11)
[2023-08-11] MEDS: traMADol HCL (*CRX) 50 MG TABLET PO ×3 (08:12→23:54)
[2023-08-11 08:46] VITALS: BP 106/48; PULSE 81; RESP 20; TEMP 36.7; O2SAT 98
--- NOTE | 2023-08-11 09:02 | WPDANESPN ---
Anes - Prog Note Post-Op Date/Time: 08/11/23 09:02 Cardiovascular status: normal Respiratory status: normal Airway patency: baseline Mental status: baseline Post-Op hydration status: normal Vital Signs: Last Vital Signs Temp 36.8 C 08/11/23 04:46 Pulse 63 08/11/23 04:46 Resp 18 08/11/23 04:46 BP 130/78 08/11/23 04:46 Pulse Ox 98 08/11/23 04:46 O2 Del Method Room Air 08/10/23 20:00 O2 Flow Rate 8 08/10/23 09:23 Pain Score (VAS): 08/23 I/O: Intake & Output 08/10/23 08/11/23 08/11/23 23:59 07:59 15:59 Intake Total 494 1050 Output Total 300 Balance 494 750 Laboratory Tests 08/11/23 06:12 08/11/23 06:12 08/10/23 08/11/23 06:46 06:12 WBC 7.7 RBC 2.62 L Hgb 8.3 L Hct 26.0 L MCV 99.2 MCH 31.7 MCHC 31.9 L RDW 12.9 Plt Count 124 L MPV 10.1 Immature Gran % (Auto) 0.7 H Neut % (Auto) 75.1 H Lymph % (Auto) 10.2 L Lassen % (Auto) 13.4 H Eos % (Auto) 0.5 Baso % (Auto) 0.1 L Lymph # (Auto) 0.78 L Lassen # (Auto) 1.0 H Eos # (Auto) 0.0 Baso # (Auto) 0.0 Abs Immat Gran (auto) 0.05 H Absolute Neuts (auto) 5.8 Absolute Nucleated RBC 0.0 Nucleated RBC % 0.0 Sodium 136 L Potassium 4.4 Chloride 105 Carbon Dioxide 29 Anion Gap 2 L BUN 29 H Creatinine 0.70 Estim Creat Clear Calc 73 Estimated GFR > 60 Glucose 137 H Calcium 8.1 L Total Bilirubin 0.8 AST 33 ALT 16 Alkaline Phosphatase 58 Total Protein 6.0 L Albumin 2.9 L Total T3 0.74 L Post-procedural complaints: none Patient Feedback: Patient satisfied with anesthetic care.
--- NOTE | 2023-08-11 09:24 | PM.PNORT ---
Progress Note: A&P Assessment and Plan (1) Displaced fracture of left femoral neck: Code(s): S72.002A - Fracture of unspecified part of neck of left femur, initial encounter for closed fracture Status: Acute Assessment and Plan: POD #1 : Left hip intramedullary hip screw Continue PT/OT. WBAT. Walker. HIGH FALL RISK. Continue pain control. Ice Hip. Protect skin. DVT prophylaxis with Aspirin/Arixtra. SCDs. Incentive Spirometry Use reviewed. Monitor Dressing. Change prior to discharge. Bowel Regimen. Dispo: SNF pending progress with PT/OT (2) Abdominal aortic aneurysm: Code(s): I71.40 - Abdominal aortic aneurysm, without rupture, unspecified Status: Acute (3) Urinary retention: Code(s): R33.9 - Retention of urine, unspecified Status: Acute Assessment and Plan: Mckeon in place currently. Plans to remove today. (4) Pulmonary fibrosis: Code(s): J84.10 - Pulmonary fibrosis, unspecified Status: Acute Plan Reviewed history, exam, radiographs and current labs with attending MD and covering surgeon, Dr. Winters, who agrees with current plan as indicated above. No further recommendations from Dr. Winters at this time. Subjective Subjective Date/Time Seen: 08/11/23 09:24 Post Op day: 1 Interval history: POD #1: Left hip intramedullary hip screw Patient awake, alert. No new concerns. Awaiting PT/OT this AM. Reports pain but well controlled. Review of Systems Constitutional: Constitutional: Denies chills, Denies fatigue, Denies fever(s), Denies night sweats and Denies weakness Cardiovascular: Cardiovascular: Denies chest pain, Denies lightheadedness, Denies palpitations and Denies dyspnea Respiratory: Respiratory: Denies cough, Denies dyspnea and Denies wheezing Gastrointestinal: Gastrointestinal: Denies abdominal pain, Denies diarrhea, Denies nausea and Denies vomiting Musculoskeletal: Musculoskeletal: Reports arthralgias (left hip ), Reports joint swelling (left hip ) and Denies numbness Neurologic: Denies numbness and Denies weakness Endocrine: Endocrine: Denies fatigue and Denies palpitations Allergic/Immunologic: Allergic/Immunologic: Denies wheezing Exam Const: General: comfortable and no acute distress Orientation/consciousness: patient oriented x3 Limitations: no limitations Resp: Effort & Inspection: normal respiratory effort Cardio: Rate: regular rate Rhythm: regular rhythm GI: Inspection: non-distended Skin: General skin exam: normal color and wounds noted (incision left hip C/D/I ) Wounds: wounds noted (incision left hip C/D/I ) Neuro: General: patient oriented x3 Extrem: Left lower extremity: hip/thigh Details: tenderness Location: of the hip Location: laterally and anteriorly, swelling (thigh soft ) Location: of the hip (lateral. ), abnormal ROM (limitations with internal/external rotation and flexion/extension due to recent surgical intervention ) and other (incision lateral hip c/d/i. ), knee Details: normal to inspection and normal ROM; no tenderness and no swelling, lower leg (Negative Sury's Sign ) Details: no edema, ankle (+ankle dorsiflexion/plantarflexion ) Details: normal to inspection, no edema and normal ROM; no tenderness, no swelling and no warmth and foot Details: normal capillary refill, toes with normal ROM, vascular exam Details: dorsalis pedis pulse present and motor-sensory exam light-touch normal in all toes; no tenderness, no ecchymosis and no crepitus Psych: Mental Status: mental status grossly normal Affect: normal affect Objective Data Vital Signs Vital Signs: Vital Signs - 24 hr 08/10/23 09:35 08/10/23 09:50 08/10/23 10:07 Temperature Pulse Rate 86 87 89 Respiratory Rate 19 21 H 19 Blood Pressure 151/75 H 151/91 H 148/94 H Pulse Oximetry 100 99 94 Oxygen Delivery Room Air Room Air Room Air 08/10/23 10:20 08/10/23 10:35 08/10/23 10:55 Temperature 35.9 C L Pulse Rate 78 78 82 Res
--- NOTE | 2023-08-11 11:29 | PM.IMPN ---
Progress Note: A&P Assessment and Plan (1) Displaced fracture of left femoral neck: Code(s): S72.002A - Fracture of unspecified part of neck of left femur, initial encounter for closed fracture Status: Acute (2) Urinary retention: Code(s): R33.9 - Retention of urine, unspecified Status: Acute (3) Abdominal aortic aneurysm: Code(s): I71.40 - Abdominal aortic aneurysm, without rupture, unspecified Status: Acute (4) Pulmonary fibrosis: Code(s): J84.10 - Pulmonary fibrosis, unspecified Status: Acute (5) Hypothyroidism: Code(s): E03.9 - Hypothyroidism, unspecified Status: Acute (6) Hyperlipidemia: Code(s): E78.5 - Hyperlipidemia, unspecified Status: Acute Plan Closed traumatic Fracture of LT femur head -Surgery consulted -post-op day 1 -Dressing changes per surgery -Ambulate with assistance -incentive spirometer while awake -neurovascular checks distal to the surgical site -pain control -bowel regimen -PPI -DVT prophylaxis -Scd's -Daily labs Urinary retention -If no void q6 hours bladder scan -morales catheter urine >300 HX AAA no rupture -Stable 3.8 cm -F/U 2 years ultrasound Hypothyroidism -Resumed levothyroxine HLD -Resumed statin Code status: Full code per patient DVT prophylaxis: SCD's Stress ulcer prophylaxis: Protonix 40 daily PT/OT notes: PT/OT Disposition: Patient admitted for repair of fractured LT femur head. PT/OT evaluating will need SNF at discharge. CC consulted. -Patient's previous records reviewed on admission -ER notes reviewed in detail on admission -discussed all findings and current treatment plan with patient/Family/POA -Consultations reviewed for recommendations -Patient's disposition for safe discharge discussed with human services case manager Dictation performed by [employer] direct speech recognition software, therefore milk receiver variants and typographical errors may occur. Time Spent With Patient Time with patient: 15 - 25 minutes Subjective Date/time seen: 08/11/23 11:30 Interval history: Chief Complaint: Left hip pain after fall. Narrative: This is an 83-year-old male with history of dementia, frequent falls, pulmonary fibrosis, hyperlipidemia, gastroesophageal reflux disease, thyroid cancer status post thyroidectomy, hypothyroidism, and arthritis who presented to the emergency department via EMS from home for evaluation of left hip pain after a fall. The patient provides the following history. While getting out of bed this morning he tripped over his shoe and fell to the ground, striking the the left side of his body. He had immediate pain in the left leg and hip and he was unable to get himself up. Imaging showed a left intertrochanteric femoral neck fracture and he is being admitted for pain control and ortho consult for repair. At the time my evaluation his pain is pretty well controlled as long as he is not moving the left hip. He denies headache, chest pain, shortness a breath, nausea, and vomiting. 08/10: Patient was up in chair working with PT post surgery. Moved back to bed with moderate pain reported. Patient currently confused family at bedside stated he does have some confusion at home this ismore than normal likely secondary to anesthesia. Patient in no acute distress pleasant and cooperative. site clean, intact, no erythema, swelling or bruising at site. 08/11: Patient in bed family at beside reports mild pain to LT hip. Patient confusion resolved back to baseline. Surgical incision site no swelling or erythema. Review of Systems Review of Systems: Twelve systems were reviewed and are negative except for as per HPI. He stated no to every question to ask of him. He seems to have pretty significant short-term memory loss however in accuracy of his answers is questionable. All systems reviewed & are unremarkable except as noted in HPI and below Exam N
[2023-08-11 20:20] VITALS: BP 107/54; PULSE 68; RESP 16; TEMP 36.4; O2SAT 93
[2023-08-12] MEDS: MORPHINE SULFATE (*CRX) 4 MG/ML INJ IV PUSH ×2 (02:39→06:29)
[2023-08-12 05:56] VITALS: BP 118/61; PULSE 70; RESP 18; TEMP 36.4; O2SAT 97
[2023-08-12 06:48] LABS: Basophils Percent Auto 0.3 % (0.2-1.2); Eosinophils Absolute Auto 0.3 K/mm3 (0-0.3); Eosinophils Percent Auto 4.4 % (0-4.4); Hematocrit 26.4 % (42.0-52.0); Hemoglobin 8.3 g/dL (14.0-18.0); Immature Granulocyte Absolute 0.04 K/mm3 (0.00-0.031); Immature Granulocyte Percent A 0.7 % (0-0.5); Lymphocytes Absolute Auto 0.68 K/mm3 (0.9-3.2); Lymphocytes Percent Auto 11.5 % (18.3-44.2); Mean Corpuscular HGB Conc 31.4 g/dl (32-36); Mean Corpuscular Hemoglobin 31.8 pg (26-34); Mean Corpuscular Volume 101.1 fl (80-100); Mean Platelet Volume 9.4 fl (7.4-10.4); Monocytes Absolute Auto 0.7 K/mm3 (0.1-0.6); Monocytes Percent Auto 12.1 % (2.6-8.5); Neutrophils Absolute Auto 4.2 K/mm3 (1.3-6.7); Platelet Count Result 131 k/mm3 (150-375); Red Blood Count 2.61 M/mm3 (4.6-6.20); Red Cell Distribution Width 12.8 % (11.5-14.5); White Blood Count 5.9 K/mm3 (4.5-10.0)
[2023-08-12 07:00] LABS: Alanine Aminotransferase 18 U/L (6-50); Albumin Level 3.2 g/dL (3.5-5.1); Alkaline Phosphatase 60 U/L (38-126); Anion Gap 2 mmol/L (8-16); Aspartate Amino Transferase 38 U/L (17-59); Bilirubin,Total 1.1 mg/dL (0.2-1.3); Blood Urea Nitrogen 21 mg/dL (9-20); Calcium 8.2 mg/dL (8.4-10.2); Carbon Dioxide 33 mmol/L (22-30); Chloride 101 mmol/L (98-107); Estimated CRCL calculation 73 ml/min; Estimated Glomerular Filt Rate > 60; Glucose 107 mg/dL (65-110); Potassium 3.9 mmol/L (3.4-5.0); Sodium 136 mmol/L (137-145)
--- NOTE | 2023-08-12 09:23 | PM.PNORT ---
Progress Note: A&P Assessment and Plan (1) Displaced fracture of left femoral neck: Code(s): S72.002A - Fracture of unspecified part of neck of left femur, initial encounter for closed fracture Status: Acute Assessment and Plan: POD #2: Left hip intramedullary hip screw Continue PT/OT. WBAT. Walker. HIGH FALL RISK. Continue pain control. Limit narcotics due to increased confusion. Ice Hip. Protect skin. DVT prophylaxis with Aspirin/Arixtra. SCDs. Incentive Spirometry Use reviewed. Monitor Dressing. Change prior to discharge. Bowel Regimen. Dispo: SNF pending progress with PT/OT (2) Urinary retention: Code(s): R33.9 - Retention of urine, unspecified Status: Acute Assessment and Plan: Mckeon catheter removed. 800mL charted output today 08/12. Continue to monitor for urinary retention. (3) Abdominal aortic aneurysm: Code(s): I71.40 - Abdominal aortic aneurysm, without rupture, unspecified Status: Acute (4) Pulmonary fibrosis: Code(s): J84.10 - Pulmonary fibrosis, unspecified Status: Acute (5) Hypothyroidism: Code(s): E03.9 - Hypothyroidism, unspecified Status: Acute (6) Hyperlipidemia: Code(s): E78.5 - Hyperlipidemia, unspecified Status: Acute Plan Reviewed history, exam, radiographs and current labs with attending MD and covering surgeon, Dr. Winters, who agrees with current plan as indicated above. No further recommendations from Dr. Winters at this time. Time Spent With Patient Time with patient: 15 - 25 minutes Subjective Subjective Date/Time Seen: 08/12/23 09:23 Post Op day: 2 Interval history: POD #2: Left hip intramedullary hip screw Patient awake, alert. Increased confusion overnight and today. Still with pain left hip but concerns from family regarding medication regimen possibly increasing confusion. Review of Systems Review of Systems: ROS unobtainable: Yes unobtainable due to mental status Exam Const: General: comfortable and no acute distress Orientation/consciousness: No oriented to person, No oriented to place, No oriented to time and confusion Limitations: altered mental status, No behavioral limitations and No language barrier Resp: Effort & Inspection: normal respiratory effort Cardio: Rate: regular rate Rhythm: regular rhythm GI: Inspection: non-distended Skin: General skin exam: normal color and wounds noted (incision left hip C/D/I ) Wounds: wounds noted (incision left hip C/D/I ) Neuro: General: patient oriented x3 Extrem: Left lower extremity: hip/thigh Details: tenderness Location: of the hip Location: laterally and anteriorly, swelling (thigh soft ) Location: of the hip (lateral. ), abnormal ROM (limitations with internal/external rotation and flexion/extension due to recent surgical intervention ) and other (incision lateral hip c/d/i. ), knee Details: normal to inspection and normal ROM; no tenderness and no swelling, lower leg (Negative Sury's Sign ) Details: no edema, ankle (+ankle dorsiflexion/plantarflexion ) Details: normal to inspection, no edema and normal ROM; no tenderness, no swelling and no warmth and foot Details: normal capillary refill, toes with normal ROM, vascular exam Details: dorsalis pedis pulse present and motor-sensory exam light-touch normal in all toes; no tenderness, no ecchymosis and no crepitus Psych: Mental Status: mental status grossly abnormal Affect: normal affect Objective Data Vital Signs Vital Signs: Vital Signs - 24 hr 08/11/23 20:20 08/11/23 20:00 08/12/23 05:56 Temperature 36.4 C 36.4 C L Pulse Rate 68 70 Respiratory Rate 16 18 Blood Pressure 107/54 L 118/61 Pulse Oximetry 93 97 Oxygen Delivery Room Air Intake/Output Intake/Output: Intake & Output 08/09/23 08/10/23 08/11/23 08/12/23 23:59 23:59 23:59 23:59 Intake Total 821 7381 5082 Output Total 400 576 800 Balance 930 626 2273 -800 Meds/Results Medications:
[2023-08-12] MEDS: PANTOPRAZOLE 40 MG TABLET PO ×2 (09:40→16:57)
[2023-08-12] MEDS: ASPIRIN 81 MG ENTERIC TABLET PO (09:40)
[2023-08-12] MEDS: ROSUVASTATIN 5 MG TABLET PO (09:40)
[2023-08-12] MEDS: CELECOXIB 200 MG CAPSULE PO (09:40)
[2023-08-12] MEDS: TAMSULOSIN HCL 0.4 MG CAPSULE PO (09:40)
[2023-08-12] MEDS: polyethylene glycoL 3350 17 GM POWD.PACK PO (09:41)
[2023-08-12] MEDS: FONDAPARINUX SODIUM 2.5 MG/0.5 ML SYRINGE SUB-Q (09:41)
[2023-08-12] MEDS: SENNA/DOCUSATE SODIUM TABLET 2 TAB PO ×2 (09:41→16:58)
[2023-08-12] MEDS: ACETAMINOPHEN 325 MG TABLET 650 MG PO ×2 (09:45→16:27)
[2023-08-12] MEDS: traMADol HCL (*CRX) 50 MG TABLET PO ×2 (09:45→18:26)
--- NOTE | 2023-08-12 13:05 | PM.IMPN ---
Progress Note: A&P Assessment and Plan (1) Displaced fracture of left femoral neck: Code(s): S72.002A - Fracture of unspecified part of neck of left femur, initial encounter for closed fracture Status: Acute (2) Urinary retention: Code(s): R33.9 - Retention of urine, unspecified Status: Acute (3) Abdominal aortic aneurysm: Qualifiers: Abdominal aorta location: unspecified Presence of rupture: without rupture Qualified Code(s): I71.40 - Abdominal aortic aneurysm, without rupture, unspecified Code(s): I71.40 - Abdominal aortic aneurysm, without rupture, unspecified Status: Acute (4) Pulmonary fibrosis: Code(s): J84.10 - Pulmonary fibrosis, unspecified Status: Acute (5) Hypothyroidism: Qualifiers: Hypothyroidism type: unspecified Qualified Code(s): E03.9 - Hypothyroidism, unspecified Code(s): E03.9 - Hypothyroidism, unspecified Status: Acute (6) Hyperlipidemia: Qualifiers: Hyperlipidemia type: unspecified Qualified Code(s): E78.5 - Hyperlipidemia, unspecified Code(s): E78.5 - Hyperlipidemia, unspecified Status: Acute Plan Closed traumatic Fracture of LT femur head -Surgery consulted -post-op day 1 -Dressing changes per surgery -Ambulate with assistance -incentive spirometer while awake -neurovascular checks distal to the surgical site -pain control -bowel regimen -PPI -DVT prophylaxis -Scd's -Daily labs Urinary retention -If no void q6 hours bladder scan -morales catheter urine >300 -Started flomax HX AAA no rupture -Stable 3.8 cm -F/U 2 years ultrasound Hypothyroidism -Resumed levothyroxine HLD -Resumed statin Code status: Full code per patient DVT prophylaxis: SCD's Stress ulcer prophylaxis: Protonix 40 daily PT/OT notes: PT/OT Disposition: Patient admitted for repair of fractured LT femur head. PT/OT evaluating will need SNF at discharge. CC consulted. -Patient's previous records reviewed on admission -ER notes reviewed in detail on admission -discussed all findings and current treatment plan with patient/Family/POA -Consultations reviewed for recommendations -Patient's disposition for safe discharge discussed with family preservation caseworker Dictation performed by [employer] direct speech recognition software, therefore broadband installer variants and typographical errors may occur. Time Spent With Patient Time with patient: 15 - 25 minutes Subjective Date/time seen: 08/12/23 13:05 Interval history: Chief Complaint: Left hip pain after fall. Narrative: This is an 83-year-old male with history of dementia, frequent falls, pulmonary fibrosis, hyperlipidemia, gastroesophageal reflux disease, thyroid cancer status post thyroidectomy, hypothyroidism, and arthritis who presented to the emergency department via EMS from home for evaluation of left hip pain after a fall. The patient provides the following history. While getting out of bed this morning he tripped over his shoe and fell to the ground, striking the the left side of his body. He had immediate pain in the left leg and hip and he was unable to get himself up. Imaging showed a left intertrochanteric femoral neck fracture and he is being admitted for pain control and ortho consult for repair. At the time my evaluation his pain is pretty well controlled as long as he is not moving the left hip. He denies headache, chest pain, shortness a breath, nausea, and vomiting. 08/10: Patient was up in chair working with PT post surgery. Moved back to bed with moderate pain reported. Patient currently confused family at bedside stated he does have some confusion at home this ismore than normal likely secondary to anesthesia. Patient in no acute distress pleasant and cooperative. site clean, intact, no erythema, swelling or bruising at site. 08/11: Patient in bed family at beside reports mild pain to LT hip. Patient conf
[2023-08-12 14:00] VITALS: BP 118/60; PULSE 94; RESP 14; TEMP 36.8; O2SAT 96
--- NOTE | 2023-08-12 15:31 | PM.DS ---
DS: Admitting Diagnosis Discharge Date 08/12/2023 Admitting Diagnosis LT hip fracture DS: Discharge Diagnosis Discharge Diagnosis (1) Displaced fracture of left femoral neck: Code(s): S72.002A - Fracture of unspecified part of neck of left femur, initial encounter for closed fracture Status: Acute (2) Urinary retention: Code(s): R33.9 - Retention of urine, unspecified Status: Acute (3) Abdominal aortic aneurysm: Qualifiers: Abdominal aorta location: unspecified Presence of rupture: without rupture Qualified Code(s): I71.40 - Abdominal aortic aneurysm, without rupture, unspecified Code(s): I71.40 - Abdominal aortic aneurysm, without rupture, unspecified Status: Acute (4) Pulmonary fibrosis: Code(s): J84.10 - Pulmonary fibrosis, unspecified Status: Acute (5) Hypothyroidism: Qualifiers: Hypothyroidism type: unspecified Qualified Code(s): E03.9 - Hypothyroidism, unspecified Code(s): E03.9 - Hypothyroidism, unspecified Status: Acute (6) Hyperlipidemia: Qualifiers: Hyperlipidemia type: unspecified Qualified Code(s): E78.5 - Hyperlipidemia, unspecified Code(s): E78.5 - Hyperlipidemia, unspecified Status: Acute Plan Closed traumatic Fracture of LT femur head -Dressing changes at discharge -Ambulate with assistance -incentive spirometer while awake -neurovascular checks distal to the surgical site -pain control -bowel regimen -PPI -DVT prophylaxis -Scd's -Daily labs Urinary retention -Morales catheter placed -Flomax -Bladder trials 2-3 days HX AAA no rupture -Stable 3.8 cm -F/U 2 years ultrasound Hypothyroidism -Resume levothyroxine HLD -Resume statin DS: Summary Hospital Course Reason for hospitalization: LT hip Fracture Hospital Course: Date/time seen: 08/12/23? 13:05 Interval history: Chief Complaint: Left hip pain after fall. Narrative: This is an 83-year-old male with history of dementia, frequent falls, pulmonary fibrosis, hyperlipidemia, gastroesophageal reflux disease, thyroid cancer status post thyroidectomy, hypothyroidism, and arthritis who presented to the emergency department via EMS from home for evaluation of left hip pain after a fall. The patient provides the following history. While getting out of bed this morning he tripped over his shoe and fell to the ground, striking the the left side of his body. He had immediate pain in the left leg and hip and he was unable to get himself up. Imaging showed a left intertrochanteric femoral neck fracture and he is being admitted for pain control and ortho consult for repair. At the time my evaluation his pain is pretty well controlled as long as he is not moving the left hip. He denies headache, chest pain, shortness a breath, nausea, and vomiting. ?08/10:??Patient was up in chair working with PT post surgery.? Moved back to bed with moderate pain reported.? Patient currently confused family at bedside stated he does have some confusion at home this is more than normal likely secondary to anesthesia.? Patient in no acute distress pleasant and cooperative. site clean, intact, no erythema, swelling or bruising at site.? 08/11:??Patient in bed family at beside reports mild pain to LT hip.? Patient confusion resolved back to baseline.? Surgical incision site no swelling or erythema. 08/12:??Patient reports pain is worse today but he is tolerating still with mild confusion family at bedside.? Last void was chart at 0600 no further voids noted, patient with HX of urinary retention will bladder scan may need catheter replaced started on flomax. Patient received insurance authorization same day, continued to have urinary retention and morales catheter had to be placed. Patient does have HX of retention, flomax started and will have SNF perform bladder trials in 2-3 days. Patient discharged via EMS. Status at Discharge Functional
[2023-08-12 17:41] LABS: SARS-CoV-2 RNA PCR Negative (Negative)
--- NOTE | 2023-08-12 22:24 | PC.NURSE ---
Pt taken per EMS to [facility]. Report called to Patrizia at [facility]. Pt's son present at time of transport and took all pt belongings to next facility. Pt left with morales catheter, however IV was removed.
== END 2023-08-12 21:00 | DRG 482 ==
LOC: ANHED 13:05 → ANH3MEDSUR 16:50
PROVIDERS: Orthopaedic Surgery; Physician Assistant; Admitting Provider Family Medicine; Emergency Provider Emergency Medicine; PCP Family Medicine; Visit Provider Nurse Practitioner Family
PROC: 0QS736Z Reposition Left Upper Femur with Intramedullary Internal Fixation Device, Percutaneous Approach (ICD-10-PCS; CPT 27245; principal; 2023-08-10 08:00)
DX: S72.142A Displaced intertrochanteric fracture of left femur, initial encounter for closed fracture (principal); W06.XXXA Fall from bed, initial encounter; R33.9 Retention of urine, unspecified; E03.9 Hypothyroidism, unspecified; E78.5 Hyperlipidemia, unspecified; F03.90 Unspecified dementia, unspecified severity, without behavioral disturbance, psychotic disturbance, mood disturbance, and anxiety; I71.40 Abdominal aortic aneurysm, without rupture, unspecified; J84.10 Pulmonary fibrosis, unspecified; K21.9 Gastro-esophageal reflux disease without esophagitis; R29.6 Repeated falls; Z11.52 Encounter for screening for COVID-19; Z85.850 Personal history of malignant neoplasm of thyroid; Z90.89 Acquired absence of other organs; Z98.49 Cataract extraction status, unspecified eye; Z96.653 Presence of artificial knee joint, bilateral; Z96.641 Presence of right artificial hip joint; Z79.82 Long term (current) use of aspirin
CPT/HCPCS: 36415; 70450; 72125; 72131; 73502; 74174; 80048; 80053; 83735; 84439; 84443; 84480; 85025; 87635; 96374; 96375; 97110; 97116; 97161; 97166; 97530; 97535; 99199; 99285; A9270; C1713; G0378; J0690; J1100; J1170; J1652; J1885; J2060; J2270; J2405; J2704; J3010; J3480; J7120; Q9967

== ENCOUNTER 2023-09-15 07:41 | Emergency (ER) | payer MEDICARE, SELFPAY ==
--- NOTE | ~2023-09-15 | XR_ITS ---
EXAMINATION: XR hip LT 2V w AP pelvis DATE: 09/15/2023 08:47 INDICATION: Left hip pain post fall TECHNIQUE: Anteroposterior view of the pelvis and anteroposterior and lateral lateral views of the le ft hip and femur were obtained. COMPARISON: 08/10/2023 and 08/09/2023 FINDINGS: There is some subtle callus formation associated with the comminuted intertrochanteric fracture of th e proximal left femur which is internally fixed with antegrade intramedullary kenny, femoral neck dynam ic compression screw and proximal diaphyseal interlocking screw fixation. Alignment of the weightbear ing fragments remains near-anatomic. Unchanged 2 cm proximal distraction of the lesser trochanteric f ragment which is not included within the fixation. No new fractures identified. Partially visualized right total hip and left total knee arthroplasties which are in near-anatomic alignment. No lucency s urrounding the orthopedic instrumentation to suggest loosening or infection. Moderate lower lumbar sp ondylosis with severe facet osteoarthritis bilaterally at L5-S1. Mild bilateral sacroiliac osteoarthr itis. IMPRESSION: 1. Healing subacute internally fixed mildly comminuted intertrochanteric fracture the proximal left f emur which remains in near-anatomic alignment. No acute osseous abnormality. Reviewed, dictated and finalized at location A. OVOLTAIC PANEL INSTALLER IMPRESSION: 1. Healing subacute internally fixed mildly comminuted intertrochanteric fractu re the proximal left femur which remains in near-anatomic alignment. No acute o sseous abnormality.
--- NOTE | ~2023-09-15 | CT_ITS ---
EXAMINATION: CT brain wo con INDICATION: Headache COMPARISON: 08/09/2023 TECHNIQUE: Standard unenhanced head CT. The dose-length product (DLP) was 681.00 mGy-cm. The mA was a djusted according to patient size. Iterative reconstruction technique was employed. FINDINGS: No acute intraparenchymal hemorrhage. No evidence of mass lesion. No evidence of acute infa rction. There are old lacunar infarcts of the basal ganglia. There is mild periventricular and subcor tical hypodensity probably related to small vessel ischemic disease. There is mild prominence of the sulci and ventricles related to cerebral atrophy. Intracranial calcified cerebral atherosclerosis is noted. No extra-axial collections. No mass effect or midline shift. Changes in the globes are likely from ocular lens surgery. The visualized sinuses and mastoid air cells are well aerated. IMPRESSION: 1. Areas of prior infarction without acute intracranial abnormality. 2. Age related findings. Reviewed, dictated and finalized at location B. HOUSE FORKLIFT OPERATOR
[2023-09-15 07:40] VITALS: BP 150/87; PULSE 79; RESP 15; TEMP 36.4; O2SAT 99
[2023-09-15 07:47] VITALS: BP 150/87; PULSE 76; RESP 16; O2SAT 100
[2023-09-15 08:01] VITALS: BP 155/80; PULSE 73; RESP 20; O2SAT 100
[2023-09-15 08:16] VITALS: BP 152/79; PULSE 77; RESP 18; O2SAT 100
--- NOTE | 2023-09-15 08:20 | ED.FALL ---
HPI - Fall General Chief Complaint: Fall Stated Complaint: HIP PAIN POST FALL Time Seen by Provider: 09/15/23 07:46 History of Present Illness HPI Narrative: patient is an 83-year-old male with history of dementia that presents ER after a unwitnessed fall at [facility]. He broke his hip last month and had a surgery to repair it. He reports pain to left hip after the fall. He is unsure if he lost consciousness. He has no other pain. Patient reports he fell from the 2nd story of the house however the care facility is only 1 story and he was found next to his bed. patient's son reports that the patient does not ask for help when he gets out of bed though he is supposed to. Related Data Home Medications Medication Instructions Recorded Confirmed rosuvastatin 5 mg tablet 5 mg PO DAILY 05/21/22 09/04/23 omeprazole 20 mg capsule,delayed 20 mg PO BID 08/21/22 09/04/23 release aspirin 81 mg tablet,delayed 81 mg PO DAILY 08/09/23 09/04/23 release levothyroxine 100 mcg tablet 100 mcg PO DAILY 08/09/23 09/04/23 (Synthroid) Allergies Allergy/AdvReac Type Severity Reaction Status Date / Time ANTILIPEMIC Allergy Unknown Unknown Uncoded 08/09/23 12:28 Review of Systems Review of Systems: ROS unobtainable: Yes unobtainable due to mental status PMFSH Past Medical History Medical History Abdominal aortic aneurysm 3.8 cm fusiform infrarenal abdominal aortic aneurysm noted on CT on 08/09/2023. Gastroesophageal reflux disease Hyperlipidemia Hypothyroidism Pulmonary fibrosis Thyroid cancer Surgical History Surgical History History of arthroplasty of left knee (02/2011) History of arthroplasty of right knee (09/2005) History of cataract extraction History of lumbar surgery (1972) History of right hip hemiarthroplasty (01/2008) Repair right subcapital femoral neck fracture. History of thyroidectomy Family History Family History Mother CHF (congestive heart failure) Father CHF (congestive heart failure) Heart disease Hypertension Sibling Cerebrovascular accident Sibling Diabetes mellitus Other Unknown family medical history Social History Social History Social History: Surrogate medical decision maker: Williams Virk (child). Code status: Full code. Smoking packs per day: 0.5 Smoking cigarettes per day: 10.0 Years smoked: 26 Smoking pack-years: 13.00 Smoking status: Never smoker Tobacco type: cigarettes Alcohol intake: never Substance use: never Substance use type: does not use Lack of Transportation: No Lack of Food: Never True Current Housing: I Have Housing Concerned About Future Housing: No Difficulty Paying Gas/Electric Bills: No Difficulty Paying for Meds: No Currently Unemployed: No Education: High School Diploma/GED Difficulty w/ Childcare or Family Care: No Spiritual care concerns: No Exam Narrative: GENERAL: Well-appearing, well-nourished, and in no acute distress. HEAD: Normocephalic, atraumatic. ENT: Mucous membranes moist. NECK: Supple. No C-Spine tenderness. CHEST: Clear to auscultation. No respiratory distress. HEART: Regular rate and rhythm. Normal peripheral pulses. ABDOMEN: Soft, nontender, nondistended. EXTREMITIES: Normal range of motion. No edema. SKIN: Warm, dry, no rash. NEURO: Alert and oriented x2. PSYCH: Normal mood and affect. Course Course Emergency Course: Patient informed of results. He is up and ambulatory with a walker without issue. Discharge back to his facility. Vital Signs Vital signs: Vital Signs Temperature 97.6 F 09/15/23 07:40 Pulse Rate 79 09/15/23 07:40 Respiratory Rate 15 09/15/23 07:40 Blood Pressure 150/87 H 09/15/23 07:40 Pulse Oximetry 99
== END 2023-09-15 10:51 ==
PROVIDERS: Emergency Provider Emergency Medicine; PCP Family Medicine
DX: S79.912A Unspecified injury of left hip, initial encounter (principal); F03.90 Unspecified dementia, unspecified severity, without behavioral disturbance, psychotic disturbance, mood disturbance, and anxiety; I71.43 Infrarenal abdominal aortic aneurysm, without rupture; E78.5 Hyperlipidemia, unspecified; E89.0 Postprocedural hypothyroidism; J84.10 Pulmonary fibrosis, unspecified; K21.9 Gastro-esophageal reflux disease without esophagitis; Z85.850 Personal history of malignant neoplasm of thyroid; Z96.653 Presence of artificial knee joint, bilateral; Z96.641 Presence of right artificial hip joint; Z98.49 Cataract extraction status, unspecified eye; Z79.82 Long term (current) use of aspirin; W19.XXXA Unspecified fall, initial encounter
CPT/HCPCS: 70450; 73502; 99284

== ENCOUNTER 2025-07-09 01:18 | Emergency (ER) | payer MEDICARE, SELFPAY ==
--- NOTE | ~2025-07-09 | XR_ITS ---
Examination: XR knee LT 3V Clinical History: fall, pain Comparison: None Technique: 3 views left knee Findings/impression: 1. Arthroplasty intact without associated fracture or effusion. 2. Peripheral arterial disease. Reviewed, dictated and finalized at location R. RAME AND POWERPLANT TECHNICIAN
--- NOTE | ~2025-07-09 | CT_ITS ---
CT HEAD NON-CONTRAST CT C-SPINE Clinical History: fall unwitnessed Comparison: CT brain 09/15/2023 Technique: Unenhanced axial images skull base to vertex. Coronal, sagittal reformats. Axial images thoracic inlet to skull base. Sagittal and coronal reformats. CT images acquired with automatic exposure control for dose reduction DLP: 681 mGy-cm Findings: Head: Age-related atrophy. Chronic white matter microvascular ischemic changes. Sulci, ventricles: Unremarkable. No intracerebral hemorrhage. No evidence acute territorial infarct. No mass effect, midline shift, intra-/extra-axial fluid collection. Bony calvarium intact. Visualized paranasal sinuses: Clear. Mastoid air cells: Clear. C-spine: No acute fracture or listhesis. Vertebral bodies normal height and alignment. Moderate degenerative changes. Disc spaces maintained. Prevertebral soft tissues within normal limits. Visualized lung apices: Emphysema and fibrosis. Visualized thyroid: Right lobe atrophic and/or absent. No enlarged cervical nodes. IMPRESSION: HEAD: 1. No acute intracranial findings. C-SPINE: 1. No acute fracture. Reviewed, dictated and finalized at location R. ARY AIDE IMPRESSION: HEAD: 1. No acute intracranial findings. C-SPINE: 1. No acute fracture.
[2025-07-09 01:19] VITALS: BP 147/82; PULSE 62; RESP 14; TEMP 37; O2SAT 93
--- NOTE | 2025-07-09 03:27 | ED.LOWEXIN ---
HPI - Extremity Injury (Lower) General Chief Complaint: Extremity Injury, Lower Stated Complaint: Fall, L knee pain Time Seen by Provider: 07/09/25 03:15 Source: patient and family Mode of arrival: EMS Limitations: dementia History of Present Illness HPI Narrative: Patient presents after an unwitnessed fall in the bathroom. Patient A&O x1-2 with short term memory loss reportedly although staff had reported unsure baseline orientation. Patient's family member presents and confirms he is at his baseline orientation although a bit grumpier than normal given it is the middle of the night. Unknown loss of consciousness. Unclear left knee injury although patient denies any pain. He reports a pain in my neck but then states you. He denies any headache, chest pain. Denies knee pain. History surgery in this extremity. Resides at assisted living. Not on anticoagulation (patient doesn't know but family denies). Related Data Home Medications ?Medication ?Instructions ?Recorded ?Confirmed ?Last Taken ?Type rosuvastatin 5 mg tablet 5 mg PO DAILY 05/21/22 09/04/23 05/20/22 History omeprazole 20 mg capsule,delayed 20 mg PO BID 08/21/22 09/04/23 Unknown History release aspirin 81 mg tablet,delayed 81 mg PO DAILY 08/09/23 09/04/23 Unknown History release levothyroxine 100 mcg tablet 100 mcg PO DAILY 08/09/23 09/04/23 Unknown History (Synthroid) Allergies Allergy/AdvReac Type Severity Reaction Status Date / Time ANTILIPEMIC Allergy Unknown Unknown Uncoded 08/09/23 12:28 [facility] Past Medical History Medical History Abdominal aortic aneurysm 3.8 cm fusiform infrarenal abdominal aortic aneurysm noted on CT on 08/09/2023. Pulmonary fibrosis Gastroesophageal reflux disease Hypothyroidism Hyperlipidemia Thyroid cancer Surgical History Surgical History History of thyroidectomy History of lumbar surgery (1972) History of cataract extraction History of arthroplasty of left knee (02/2011) History of right hip hemiarthroplasty (01/2008) Repair right subcapital femoral neck fracture. History of arthroplasty of right knee (09/2005) Family History Family History Mother CHF (congestive heart failure) Father CHF (congestive heart failure) Heart disease Hypertension Sibling Cerebrovascular accident Sibling Diabetes mellitus Other Unknown family medical history Social History Social History (Updated 07/10/25 @ 21:05 by Shamika Perla MD) Social History: Ambulates with wheelchair Surrogate medical decision maker: Williams Virk (child). Code status: Full code. Smoking packs per day: 0.5 Smoking cigarettes per day: 10.0 Years smoked: 26 Smoking pack-years: 13.00 Smoking status: Never smoker Tobacco type: cigarettes Alcohol intake: never Substance use: never Substance use type: does not use Lack of Transportation: No Lack of Food: Never True Current Housing: I Have Housing Concerned About Future Housing: No Difficulty Paying Gas/Electric Bills: No Difficulty Paying for Meds: No Currently Unemployed: No Education: High School Diploma/GED Difficulty w/ Childcare or Family Care: No Living arrangements: assisted living Spiritual care concerns: No (Nondenominational) Exam Narrative: GENERAL: Well-appearing, well-nourished, and in no acute distress. HEAD: Normocephalic, atraumatic. EYES: Non injected, non icteric ENT: Nares clear, no rhinorrhea or epistaxis. Gross auditory acuity intact. NECK: Supple. No meningismus. No ttp cervical spine. CHEST: Speaking in full sentences. No respiratory distress. HEART: Regular rate and rhythm. . ABDOMEN: Soft, nondistended. No rigidity or guarding. Not peritoneal EXTREMITIES: Normal range of motion. No lower extremity edema. SKIN: Warm, dry, no rash. NEURO: No focal deficits. Alert and oriented to self. Answering questions. Following commands. Normal speech without aphasia or dysarthria. PSYCH: Congruent mood and affect. Course Vital Signs Vital signs: Vital Signs Temperature 98.6 F 07/09/25 01:19 Pulse Rate 62 07/09/25 01:19 Respiratory Rate 14 07/09/25 01:19 Blood Pressure 147/82 H 07/09/25 01:19 Pulse Oximetry 93 07/09/25 01:19 Oxygen Delivery Room Air 07/09/25 01:19 Temperature 98.6 F 07/09/25 01:19 Pulse Rate 62 07/09/25 01:19 Respiratory Rate 14 07/09/25 01:19 Blood Pressure 147/82 H 07/09/25 01:19 Pulse Oximetry 93 07/09/25 01:19 Oxygen Delivery Room Air 07/09/25 01:19 MDM MDM Narrative Medical decision making narrative: Patient presents after a reported unwitnessed fall in the bathroom. Patient does not recall. No complaints although there had been report /question of left knee injury. In the emergency department he is afebrile vital signs notable for mild hypertension. Patient ready to leave. Family member feels comfortable transporting patient back to facility. Discharged with Rx for acetaminophen. Differential Diagnosis Differential Diagnosis: fracture/dislocation; intracranial hemorrhage Imaging Data Attestation: I personally reviewed and interpreted this imaging study as follows: My impression: Hardware appears intact. No obvious fracture/dislocation. Calcification of vessels can be seen. Radiologist's impression: ITS Impressions Cervical Spine CT 07/09/25 09:44 IMPRESSION: HEAD: 1. No acute intracranial findings. C-SPINE: 1. No acute fracture. Head CT 07/09/25 09:44 IMPRESSION: HEAD: 1. No acute intracranial findings. C-SPINE: 1. No acute fracture. Stat Rad XRay Left knee: Status post total knee arthroplasty without evidence of surrounding lucency to indicate loosening or infection. No acute findings seen within the knee. Stat Rad C spine: Diffuse degenerative change. No acute findings. No evidence of fracture. Stat rad ct Head: No acute intracranial findings. No intracranial hemorrhage. Discharge Plan Discharge Clinical Impression: Fall, Degenerative cervical disc Patient Disposition: [place] Long Term/Asst Living Condition: Stable Instructions: Antibiotic Form, Fall Prevention for Older Adults (ED), Degenerative Disc Disease (ED) Additional Instructions: No bleeding in the brain or fractures of the skull/neck/knee. The hardware in the knee is intact. Although you are not currently having pain, if you do develop pain it is safe to take maximum 4000mg/day of acetaminophen. Follow-up with primary care physician as needed. Return to the emergency department any new or worsening symptoms. Patient Language: Sinhala Prescriptions: New acetaminophen 500 mg capsule 1,000 mg PO Q6H PRN (Reason: pain) Qty: 30 0RF No Action rosuvastatin 5 mg tablet 5 mg PO DAILY omeprazole 20 mg capsule,delayed release(DR/EC) 20 mg PO BID aspirin 81 mg Tablet,Delayed Release (Dr/Ec) 81 mg PO DAILY levothyroxine [Synthroid] 100 mcg Tablet 100 mcg PO DAILY celecoxib [Celebrex] 200 mg Capsule 200 mg PO DAILY@0800 Qty: 30 0RF cyclobenzaprine 10 mg Tablet 10 mg PO Q8H PRN (Reason: Muscle Spasm) Qty: 30 0RF sennosides-docusate sodium [Senokot-S] 8.6-50 mg Tablet 2 tab-cap PO BID Qty: 30 0RF fondaparinux [Arixtra] 2.5 mg/0.5 mL Syringe 2.5 mg subcut DAILY 28 Days Qty: 14 0RF polyethylene glycol 3350 [Miralax] 17 gram Powder In Packet 17 g PO QAM Qty: 30 0RF tamsulosin 0.4 mg Capsule 0.4 mg PO QAM Qty: 30 0RF tramadol 50 mg Tablet 50 mg PO DAILY PRN (Reason: pain) Qty: 30 0RF Follow-up/Referrals: Kennedy,MD Veronica [Primary Care Provider, Unknown] Stand Alone Forms: Skilled Nursing Discharge Time of Disposition: 04:45
== END 2025-07-09 05:05 ==
PROVIDERS: Emergency Provider Student in an Organized Health Care Education/Training Program; PCP Family Medicine
DX: S89.92XA Unspecified injury of left lower leg, initial encounter (principal); M50.30 Other cervical disc degeneration, unspecified cervical region; J84.10 Pulmonary fibrosis, unspecified; E78.5 Hyperlipidemia, unspecified; E89.0 Postprocedural hypothyroidism; K21.9 Gastro-esophageal reflux disease without esophagitis; Z96.641 Presence of right artificial hip joint; Z96.653 Presence of artificial knee joint, bilateral; Z85.850 Personal history of malignant neoplasm of thyroid; Z98.49 Cataract extraction status, unspecified eye; Z87.891 Personal history of nicotine dependence; W19.XXXA Unspecified fall, initial encounter
CPT/HCPCS: 70450; 72125; 73562; 99284